=== PATIENT | female | born 1990 | race Caucasian/White ===

== ENCOUNTER → 2019-10-15 | Outpatient (CLI) | payer BC, SELFPAY | PROVIDERS: PCP Family Medicine; Referring Provider Obstetrics & Gynecology; Visit Provider Obstetrics & Gynecology | DX: I10 Essential (primary) hypertension (principal); Z34.90 Encounter for supervision of normal pregnancy, unspecified, unspecified trimester ==

== ENCOUNTER → 2019-11-07 12:34 | Outpatient (CLI) | payer BC, SELFPAY ==
[2019-11-07 14:47] LABS: Hematocrit 37.6 % (36-46); Hemoglobin 12.6 g/dL (12.0-16.0); Mean Corpuscular HGB Conc 33.4 % (30-36); Mean Corpuscular Hemoglobin 30.2 PG (26-34); Mean Corpuscular Volume 90.4 fL (80-100); Platelet Count 209 X10^3/uL (150-400); Red Blood Cell Count 4.16 X10^6/uL (4.0-5.2); Red Cell Distribution Width 13.9 % (11.6-14.8); White Blood Cell Count 12.6 X10^3/uL (4.5-11.0)
[2019-11-07 14:57] LABS: Collection Time Urine 24 Hours; Protein (Total) Urine Random 12 mg/dL (0-12); Total Protein 24 Hour Urine 382 mg/day (42-225); Total Volume Urine 3180 mL
[2019-11-07 15:04] LABS: Alanine Aminotransferase 34 IU/L (<35); Albumin 3.6 g/dL (3.5-5.0); Albumin Globulin Ratio 1.2 (1.0-2.8); Alkaline Phosphatase 81 U/L (38-126); Aspartate Aminotransferase 30 IU/L (14-36); Bilirubin Total 0.3 mg/dL (0.2-1.3); Blood Urea Nitrogen 9 mg/dL (7-17); Calcium 8.8 mg/dL (8.4-10.2); Carbon Dioxide 23 mmol/L (22-32); Chloride 102 mmol/L (98-107); Estimated Glomerular Filt Rate > 60.0 mL/min (>60); GTT (PREG) 1 Hour PP 50gm Dose 154 mg/dL (76-139); Globulin 3.1 g/dL (1.7-4.1); Glucose 154 mg/dL (70-100); HEMOLYSIS < 15 (0-50); Potassium 3.2 mmol/L (3.4-5.1); Sodium 137 mmol/L (137-145); Total Protein 6.7 g/dL (6.3-8.2)
== END ==
PROVIDERS: PCP Family Medicine; Referring Provider Obstetrics & Gynecology; Visit Provider Obstetrics & Gynecology
DX: O10.919 Unspecified pre-existing hypertension complicating pregnancy, unspecified trimester (principal)
CPT/HCPCS: 36415; 80053; 82950; 84156; 85027

== ENCOUNTER → 2019-11-11 07:47 | Outpatient (CLI) | payer BC, SELFPAY ==
[2019-11-11 08:37] LABS: Glucose Fasting Gestational 81 mg/dL (76-95)
[2019-11-11 10:00] LABS: Glucose 1 Hour Gest 202 mg/dL (76-180)
[2019-11-11 11:09] LABS: Glucose Tol Interp,Gestational INTERPRETATION
[2019-11-11 11:16] LABS: Glucose 2 Hour Gest 184 mg/dL (76-155)
[2019-11-11 11:39] LABS: Glucose 3 Hour Gest 142 mg/dL (76-140)
== END ==
PROVIDERS: PCP Family Medicine; Referring Provider Obstetrics & Gynecology; Visit Provider Obstetrics & Gynecology
DX: R73.09 Other abnormal glucose (principal)
CPT/HCPCS: 36415; 82951; 82952

== ENCOUNTER → 2019-12-16 13:48 | Outpatient (CLI) | payer BC, SELFPAY ==
--- NOTE | 2019-12-16 14:10 | DIET.PN ---
INITIAL GESTATIONAL DIABETES ASSESSMENT ASSESS:? Mrs. Crystal Adamson is a 29 yr old female with new DX of Gestational diabetes. This is her first . She reports significant changes to her dietary patterns since her DX including cutting down on portions sizes and eliminating juices and diet beverages. She is not taking any diabetes medication. ? SARAH:? February 03, 2020 ? WKS GESTATION:?? 33 weeks ?LABS: Fastin 1hr: 202 2hr: 184 3hr: 142 FB-94 1hr: <140 ? MEDS: na ? DIET:? B: ww toast w/ PB, chobani pashto yogurt w/ granola, 1 espresso w/ anupam milk Sn: apple w/ PB; crx w/ chz; cottage chz L: leftovers Sn: same as above D: chicken or lean ground beef w/ veg and starch Sn: popcorn; yogurt ? HT:? 70? PRE-PREG WT:? 188 ? PRE-PREG BMI:??27? CURRENT WT : 206 ? TOTAL WT GAIN:? 18 EXERCISE: occasional walking on treadmill at home NUTRITION DX 1. Altered nutrition related lab values r/t gestational diabetes as evidenced by recent labs (OGGT). INTERVENTION 1. Discussed pathophysiology of gestational diabetes and impact of hormone and nutrition/diet on blood sugar control.? Discussed fed versus non-fed state.? 2. Recommended checking fasting, pre-meal and 1hr post prandial (3x/day).? Discussed goals for glycemic control (<95 FBG, <140 1-hr PP).? 3. Discussed the effect of carbohydrates/protein/fat on blood sugar control.? Stressed importance of consistent carbohydrate intake at each meal and provided instructions for recommended servings/portions of carbohydrates/protein per meal.? Provided pt with educational material. 4. Introduced carbohydrate counting and measuring carbohydrate content via servings sizes and reading nutrition labels.? Provided handouts.? Pt will need further review 5. Discussed importance of meal timing and not going >3 hours between meals.? Provided sample meal schedule for pt.? Pt agreeable.?? 6. Discussed importance a pre-kamini vitamin and including food sources of calcium, vitamin D, iron and folic acid for baby and mother?s nutrition support. 7. Discussed caffeine intake. Recommend no more than 200 mg/day (1 cup coffee). 8. Discussed rule of 15 for hypoglycemia. 9. Recommend patient purchase Urine Ketone strips and instructed on use and when to contact provider. 10. Recommended patient continue exercise as appropriate per PCP approval. 11. Patient may need medication management, will follow-up with plan of care at next visit after reviewing glucose results.? MONITOR/EVAL: Follow up scheduled X 1 week (phone call unless otherwise indicated). Good compliance expected. Review: carb sources, carb counting, portion size, meal timing, BG log, weight.
[2019-12-16 14:18] LABS: Hemoglobin 13.2 g/dL (12.0-16.0); Mean Corpuscular Hemoglobin 30.7 PG (26-34); Mean Corpuscular Volume 90.2 fL (80-100); Platelet Count 207 X10^3/uL (150-400); Red Blood Cell Count 4.32 X10^6/uL (4.0-5.2); Red Cell Distribution Width 14.4 % (11.6-14.8); White Blood Cell Count 11.1 X10^3/uL (4.5-11.0)
[2019-12-16 14:38] LABS: Alanine Aminotransferase 24 IU/L (<35); Albumin 3.8 g/dL (3.5-5.0); Albumin Globulin Ratio 1.1 (1.0-2.8); Alkaline Phosphatase 110 U/L (38-126); Aspartate Aminotransferase 28 IU/L (14-36); BUN Creatinine Ratio 15.9 (6-22); Bilirubin Total 0.3 mg/dL (0.2-1.3); Blood Urea Nitrogen 10 mg/dL (7-17); Calcium 9.3 mg/dL (8.4-10.2); Carbon Dioxide 25 mmol/L (22-32); Chloride 106 mmol/L (98-107); Estimated Glomerular Filt Rate > 60.0 mL/min (>60); Globulin 3.5 g/dL (1.7-4.1); Glucose 78 mg/dL (70-100); HEMOLYSIS < 15 (0-50); Potassium 4.1 mmol/L (3.4-5.1); Sodium 135 mmol/L (137-145); Total Protein 7.3 g/dL (6.3-8.2)
[2019-12-16 14:40] LABS: Uric Acid 3.9 mg/dL (2.5-6.2)
== END ==
PROVIDERS: PCP Family Medicine; Referring Provider Obstetrics & Gynecology; Visit Provider Obstetrics & Gynecology
DX: O24.419 Gestational diabetes mellitus in pregnancy, unspecified control (principal); Z3A.33 33 weeks gestation of pregnancy; Z71.3 Dietary counseling and surveillance
CPT/HCPCS: 36415; 80053; 84550; 85027; G0108

== ENCOUNTER 2019-12-30 13:10 | Outpatient (CLI) | payer BC, SELFPAY | END 2019-12-30 14:35 | disposition home or self-care (01) | LOC: LABOR 13:50 → OB 12-31 12:39 | PROVIDERS: Referring Provider Obstetrics & Gynecology; Visit Provider Obstetrics & Gynecology | DX: O24.419 Gestational diabetes mellitus in pregnancy, unspecified control (principal); Z3A.35 35 weeks gestation of pregnancy | CPT/HCPCS: 59025; G0378; G0379 ==

== ENCOUNTER 2020-01-06 09:50 | Outpatient (CLI) | payer BC, SELFPAY | END 2020-01-06 12:05 | disposition home or self-care (01) | LOC: LABOR 10:32 → OB 01-07 15:18 | PROVIDERS: Referring Provider Obstetrics & Gynecology; Visit Provider Obstetrics & Gynecology | DX: O24.410 Gestational diabetes mellitus in pregnancy, diet controlled (principal); Z3A.36 36 weeks gestation of pregnancy | CPT/HCPCS: 36415; 59025; 59050; 80053; 85025; 87653; G0378; G0379 ==

== ENCOUNTER → 2020-01-06 11:23 | Outpatient (CLI) | payer BC, SELFPAY ==
[2020-01-06 13:03] LABS: Add Manual Diff / Slide Review NO; Basophils Absolute Auto 0 /uL (0-100); Basophils Percent Auto 0.2 % (0-2); Eosinophils Absolute Auto 100 /uL (0-450); Eosinophils Percent Auto 0.5 % (2-4); Hematocrit 39.2 % (36-46); Hemoglobin 13.1 g/dL (12.0-16.0); Lymphocytes Absolute Auto 1200 /uL (1100-4500); Lymphocytes Percent Auto 10.9 % (25-40); Mean Corpuscular HGB Conc 33.4 % (30-36); Mean Corpuscular Hemoglobin 30.5 PG (26-34); Mean Corpuscular Volume 91.2 fL (80-100); Monocytes Absolute Auto 600 /uL (0-900); Monocytes Percent Auto 5.5 % (3-14); Neutrophils Absolute Auto 9200 /uL (1500-7000); Neutrophils Percent Auto 82.9 % (50-75); Platelet Count 198 X10^3/uL (150-400); Red Cell Distribution Width 14.5 % (11.6-14.8); White Blood Cell Count 11.1 X10^3/uL (4.5-11.0)
[2020-01-06 13:08] LABS: Alanine Aminotransferase 20 IU/L (<35); Albumin 3.8 g/dL (3.5-5.0); Albumin Globulin Ratio 1.2 (1.0-2.8); Alkaline Phosphatase 136 U/L (38-126); Aspartate Aminotransferase 29 IU/L (14-36); BUN Creatinine Ratio 21.3 (6-22); Bilirubin Total 0.3 mg/dL (0.2-1.3); Blood Urea Nitrogen 13 mg/dL (7-17); Calcium 9.5 mg/dL (8.4-10.2); Carbon Dioxide 24 mmol/L (22-32); Chloride 106 mmol/L (98-107); Estimated Glomerular Filt Rate > 60.0 mL/min (>60); Globulin 3.3 g/dL (1.7-4.1); Glucose 73 mg/dL (70-100); HEMOLYSIS < 15 (0-50); Sodium 136 mmol/L (137-145); Total Protein 7.1 g/dL (6.3-8.2)
[2020-01-07 07:55] LABS: Strep Grp B PCR NEG for Grp B Strep
== END ==
PROVIDERS: Referring Provider Obstetrics & Gynecology; Visit Provider Obstetrics & Gynecology
DX: Z34.03 Encounter for supervision of normal first pregnancy, third trimester (principal); Z3A.36 36 weeks gestation of pregnancy
CPT/HCPCS: 36415; 80053; 85025; 87653

== ENCOUNTER → 2020-01-15 10:27 | Outpatient (CLI) | payer BC, SELFPAY ==
[2020-01-15 12:00] LABS: Hemoglobin 12.8 g/dL (12.0-16.0); Mean Corpuscular HGB Conc 34.6 % (30-36); Mean Corpuscular Hemoglobin 31.4 PG (26-34); Mean Corpuscular Volume 90.7 fL (80-100); Platelet Count 192 X10^3/uL (150-400); Red Blood Cell Count 4.08 X10^6/uL (4.0-5.2); Red Cell Distribution Width 14.6 % (11.6-14.8); White Blood Cell Count 10.3 X10^3/uL (4.5-11.0)
[2020-01-15 12:02] LABS: Alanine Aminotransferase 18 IU/L (<35); Albumin 3.7 g/dL (3.5-5.0); Albumin Globulin Ratio 1.2 (1.0-2.8); Alkaline Phosphatase 127 U/L (38-126); Aspartate Aminotransferase 24 IU/L (14-36); BUN Creatinine Ratio 23.4 (6-22); Bilirubin Total 0.3 mg/dL (0.2-1.3); Blood Urea Nitrogen 15 mg/dL (7-17); Calcium 9.3 mg/dL (8.4-10.2); Carbon Dioxide 22 mmol/L (22-32); Chloride 105 mmol/L (98-107); Estimated Glomerular Filt Rate > 60.0 mL/min (>60); Globulin 3.2 g/dL (1.7-4.1); Glucose 86 mg/dL (70-100); HEMOLYSIS < 15 (0-50); Sodium 136 mmol/L (137-145); Total Protein 6.9 g/dL (6.3-8.2)
[2020-01-15 15:34] LABS: Protein (Total) Urine Random 10 mg/dL (0-12)
[2020-01-15 18:30] LABS: Collection Time Urine 24 Hours; Total Protein 24 Hour Urine 305 mg/day (42-225); Total Volume Urine 3050 mL
[2020-01-15 18:35] LABS: Creatinine, Serum (CRCL) 0.64 mg/dL (0.52-1.04)
[2020-01-15 18:36] LABS: Creat Clearance, Corrected 133.7 mL/MIN; Creatinine Clearance Urine 165.8 mL/MIN; Creatinine Urine Random 50.1 mg/dL; Patient Height Urine 70 inches; Patient Weight Urine 215 lbs
== END ==
PROVIDERS: Referring Provider Obstetrics & Gynecology; Visit Provider Obstetrics & Gynecology
DX: O16.3 Unspecified maternal hypertension, third trimester (principal)
CPT/HCPCS: 36415; 80053; 82575; 84156; 84550; 85027

== ENCOUNTER 2020-01-15 10:53 | Outpatient (CLI) | payer BC, SELFPAY | END 2020-01-15 11:50 | disposition home or self-care (01) | LOC: LABOR 11:26 → OB 01-16 07:46 | PROVIDERS: Referring Provider Obstetrics & Gynecology; Visit Provider Obstetrics & Gynecology | DX: O24.419 Gestational diabetes mellitus in pregnancy, unspecified control (principal); Z3A.37 37 weeks gestation of pregnancy | CPT/HCPCS: 36415; 59025; 80053; 82575; 84156; 84550; 85027; G0378; G0379 ==

== ENCOUNTER 2020-01-22 11:10 | Outpatient (CLI) | payer BC, SELFPAY | END 2020-01-22 12:15 | disposition home or self-care (01) | LOC: LABOR 11:39 → OB 01-23 13:11 | PROVIDERS: Referring Provider Obstetrics & Gynecology; Visit Provider Obstetrics & Gynecology | DX: O24.419 Gestational diabetes mellitus in pregnancy, unspecified control (principal); O13.3 Gestational [pregnancy-induced] hypertension without significant proteinuria, third trimester; Z3A.38 38 weeks gestation of pregnancy | CPT/HCPCS: 59025; G0378; G0379 ==

== ENCOUNTER → 2020-01-27 11:27 | Outpatient (CLI) | payer BC, SELFPAY ==
[2020-01-28 11:00] LABS: COVID19 Sendout NOT DETECTED
== END ==
PROVIDERS: Visit Provider Registered Nurse
DX: Z34.90 Encounter for supervision of normal pregnancy, unspecified, unspecified trimester (principal)
CPT/HCPCS: 87635

== ENCOUNTER 2020-01-28 19:19 | Inpatient (IN) | payer BC, SELFPAY ==
[2020-01-28 20:25] VITALS: BP 136/87
[2020-01-28 20:43] LABS: Add Manual Diff / Slide Review NO; Basophils Absolute Auto 0 /uL (0-100); Basophils Percent Auto 0.3 % (0-2); Eosinophils Absolute Auto 100 /uL (0-450); Eosinophils Percent Auto 0.7 % (2-4); Hematocrit 35.8 % (36-46); Hemoglobin 12.4 g/dL (12.0-16.0); Lymphocytes Absolute Auto 1500 /uL (1100-4500); Lymphocytes Percent Auto 13.5 % (25-40); Mean Corpuscular HGB Conc 34.6 % (30-36); Mean Corpuscular Hemoglobin 31.2 PG (26-34); Mean Corpuscular Volume 89.9 fL (80-100); Monocytes Absolute Auto 700 /uL (0-900); Monocytes Percent Auto 6.4 % (3-14); Neutrophils Absolute Auto 8500 /uL (1500-7000); Neutrophils Percent Auto 79.1 % (50-75); Platelet Count 185 X10^3/uL (150-400); Red Blood Cell Count 3.98 X10^6/uL (4.0-5.2); Red Cell Distribution Width 14.5 % (11.6-14.8); White Blood Cell Count 10.8 X10^3/uL (4.5-11.0)
[2020-01-28 20:55] VITALS: BP 136/87; PULSE 70
[2020-01-28 20:55] LABS: Alanine Aminotransferase 25 IU/L (<35); Albumin 3.6 g/dL (3.5-5.0); Albumin Globulin Ratio 1.2 (1.0-2.8); Alkaline Phosphatase 133 U/L (38-126); Aspartate Aminotransferase 34 IU/L (14-36); BUN Creatinine Ratio 23.7 (6-22); Bilirubin Total 0.2 mg/dL (0.2-1.3); Blood Urea Nitrogen 18 mg/dL (7-17); Calcium 9.3 mg/dL (8.4-10.2); Carbon Dioxide 23 mmol/L (22-32); Chloride 103 mmol/L (98-107); Estimated Glomerular Filt Rate > 60.0 mL/min (>60); Globulin 3.1 g/dL (1.7-4.1); Glucose 87 mg/dL (70-100); HEMOLYSIS < 15 (0-50); Potassium 3.9 mmol/L (3.4-5.1); Sodium 133 mmol/L (137-145); Total Protein 6.7 g/dL (6.3-8.2)
[2020-01-28] MEDS: LABETALOL 100 MG TABLET PO (20:55)
[2020-01-28] MEDS: miSOPROStoL 25 MCG TABLET 50 MCG PO (21:05)
--- NOTE | 2020-01-28 21:09 | P.HPOB_ITS ---
OB HPI Date/Time Date of admission: 01/28/20 Date Patient Seen: 01/28/20 Time Patient Seen: 20:30 History of Present Condition Chief complaint: : 1 Para: 0 Estimated Date of Delivery: 02/03/20 Estimated Gestational Age (weeks): 39week Narrative: Chelsie Adamson is a 29 year old G1 female with an SARAH of 02/03/2020 by LMP and consistent with a 9 week ultrasound, who is being admitted at 39 weeks for induction of labor due to chronic hypertension and GDM. She was noted to have an elevated BP had her initial OB visit. She was followed by MFM with growth scans through the . She preferred to try to stay off medications and BP overall controlled through , especially once she was no longer working due to COVID-19 precautions and found with less stress from work, her BP was controlled. She recently did need to start labetalol at the end of . She has baseline proteinuria at approximately 300 mg which was stable a few weeks ago. was also complicated by GDM, which has been diet controlled, with excellent control. Indications Indication for induction OB: medical complication (Chronic hypertension, gestational diabetes) History of Present care: good care Dating criteria: LMP confirmed by 1st trimester US Obstetrical complications: gestational diabetes Preadmission Labs Blood type: B (+) positive -: Antibody screen: negative, Cystic fibrosis screen: negative, GBS status: negative, HBsAG: negative and HIV: negative -: Chlamydia screen: not detected -: Rubella: immune and Varicella: immune HCAB: negative PAP: Normal Cell-free DNA: normal, male gender Evaluation Evaluation Baseline heart rate: 130 Variability: Moderate (11-25) monitor accelerations: Present monitor decelerations: Absent Category of Tracing: I Cervical dilation (cm): 0 Cervical effacement (%): 0 station: -3 Laboratory results: Laboratory Tests 01/28/20 01/28/20 19:50 19:50 WBC 10.8 RBC 3.98 L Hgb 12.4 Hct 35.8 L MCV 89.9 MCH 31.2 MCHC 34.6 RDW 14.5 Plt Count 185 Neut % (Auto) 79.1 H Lymph % (Auto) 13.5 L Spencer % (Auto) 6.4 Eos % (Auto) 0.7 L Baso % (Auto) 0.3 Neut # (Auto) 8500 H Lymph # (Auto) 1500 Spencer # (Auto) 700 Eos # (Auto) 100 Baso # (Auto) 0 Sodium 133 L Potassium 3.9 Chloride 103 Carbon Dioxide 23 BUN 18 H Creatinine 0.76 Estimated GFR > 60.0 BUN/Creatinine Ratio 23.7 H Glucose 87 Calcium 9.3 Total Bilirubin 0.2 AST 34 ALT 25 Alkaline Phosphatase 133 H Total Protein 6.7 Albumin 3.6 Globulin 3.1 Albumin/Globulin Ratio 1.2 [facility] Medical History (Updated 11/13/19 @ 16:28 by Leslie Harvey MD) GDM (gestational diabetes mellitus) (Acute) Ovarian cyst (Inactive ~2017) Surgical History (Updated 10/10/19 @ 09:46 by Elzbieta Jimenez RN) No significant past surgical history (Acute) Family History (Updated 06/07/19 @ 22:09 by Cristal Kruger) Father Diabetes mellitus History of heart disease Hypertension Stroke Mother Hypertension Hyperlipidemia History of renal disease Brother Hypertension Grandmother Stroke Hypertension Social History marital status: Smoking Status: Never smoker second hand exposure: No alcohol intake: current substance use type: does not use Meds Home Medications and Allergies Home Medications Medication Instructions Recorded Confirmed Type prenat.vits,rivka,nlv-csse-ddcyv 1 tab PO DAILY 10/09/19 01/28/20 History Double Electric breast Pump and #1 each 10/23/19 01/28/20 Rx Supplies blood sugar diagnostic #400 each 11/14/19 01/28/20 Rx blood-glucose meter #1 each 11/14/19 01/28/20 Rx lancets 28 gauge #400 each 11/14/19 01/28/20 Rx blood sugar diagnostic #100 each 12/30/19 01/28/20 Rx Allergies Allergy/AdvReac Type Severity Reaction Status Date / Time No Known Drug Allergies Allergy Verified 01/06/20 10:56 Review of Systems Review of Systems Narrative: Denies headache, vision changes or abdominal pain. Denies leakage of fluid. Denies feeling any contractions. Exam Vital Signs (past 8 hours): - Initial BP's 153/89, 150/95, then decreased to 136/87. Pulse 70 01/28/20 20:25 01/28/20 20:55 Pulse Rate 70 Blood Pressure 136/87 136/87 Narrative Exam Narrative: General: Well-appearing female Abdomen: Gravid, nontender, nondistended Extremities trace edema Cervix closed/long/posterior to mid position/-3 Objective Labs Result Diagrams: 01/28/20 19:50 01/28/20 19:50 Labs: Laboratory Results - last 24 hr 01/28/20 01/28/20 19:50 19:50 WBC 10.8 RBC 3.98 L Hgb 12.4 Hct 35.8 L MCV 89.9 MCH 31.2 MCHC 34.6 RDW 14.5 Plt Count 185 Neut % (Auto) 79.1 H Lymph % (Auto) 13.5 L Spencer % (Auto) 6.4 Eos % (Auto) 0.7 L Baso % (Auto) 0.3 Neut # (Auto) 8500 H Lymph # (Auto) 1500 Spencer # (Auto) 700 Eos # (Auto) 100 Baso # (Auto) 0 Sodium 133 L Potassium 3.9 Chloride 103 Carbon Dioxide 23 BUN 18 H Creatinine 0.76 Estimated GFR > 60.0 BUN/Creatinine Ratio 23.7 H Glucose 87 Calcium 9.3 Total Bilirubin 0.2 AST 34 ALT 25 Alkaline Phosphatase 133 H Total Protein 6.7 Albumin 3.6 Globulin 3.1 Albumin/Globulin Ratio 1.2 Assessment and Plan Assessment and Plan Assessment and Plan narrative: 29-year-old G1 with, chronic hypertension, GDM diet controlled Admit for induction of labor due to the chronic hypertension and GDM IV placed. CBC, CMP and type and screen ordered Cytotec ordered for cervical ripening. Time Spent with Patient Total time spent with greater than 50% in coordination of care (as documented) at patient's floor/unit and/or counseling patient:: 15-24 minutes
[2020-01-28] MEDS: ZOLPIDEM 5 MG TABLET PO (23:08)
[2020-01-29] MEDS: miSOPROStoL 25 MCG TABLET 50 MCG PO ×4 (01:27→13:51)
[2020-01-29] MEDS: LABETALOL 100 MG TABLET PO ×2 (09:41→21:33)
--- NOTE | 2020-01-29 17:55 | PM.OBPNLAB ---
Date/Time Date Patient Seen: 01/29/20 Time Patient Seen: 08:00 Pain Control Pain control: tolerating well Comments: Only feeling mildly crampy for the 1st time this a.m.. She is status post 3 doses of misoprostol; next dose will be due in 1 hour. Pelvic Exam Dilation (cm): 1 Effacement (%): 50 station: -3 Contractions Contractions on admission: none Contraction pattern: Irregular (q 2-5 to occasional) Contraction intensity: Mild Status status: Category l Heart Rate Baseline: 120 Monitor Accelerations: Present Monitor Decelerations: Absent Monitor Variability: Moderate Assessment and Plan Assessment: induction ongoing Plan: continuous present management Comments: Discussed with her, continue with the cervical ripening. Repeat misoprostol when due in 1 hour.
--- NOTE | 2020-01-29 18:51 | PM.OBPNLAB ---
Date/Time Date Patient Seen: 01/29/20 Time Patient Seen: 18:40 Pain Control Pain control: tolerating well Pelvic Exam Dilation (cm): 0 Effacement (%): 0 station: -3 Amniotic membrane status: Intact Contractions Contraction frequency (min): 5 (q 2-5 minutes) Contraction pattern: Irregular (q 2 to 5 minutes) Contraction intensity: Mild Status status: Category l Monitor Accelerations: Present Monitor Decelerations: Absent Monitor Variability: Moderate Comments: 1 hour PP glucose post dinner 110 Assessment and Plan Assessment: induction ongoing Comments: Discussed continue with cervical ripening. I discussed consideration of transcervical Mcgovern balloon versus continuing with prostaglandins medication. Patient is hesitant regarding the Mcgovern due to concern if discomfort with placing this. Desires continuing with medication. Will change to Cervidil overnight for sleep as well. Discussed and agreeable to Cervidil. She had some dinner. Will shower and ambulate, then have Cervidil placed for prior to bedtime.
[2020-01-29 21:33] VITALS: BP 141/78; PULSE 64
[2020-01-29] MEDS: DINOPROSTONE VAG (CERVIDIL) 10 MG VAG (21:49)
--- NOTE | 2020-01-29 22:05 | PM.OBPNLAB ---
Date/Time Date Patient Seen: 01/29/20 Time Patient Seen: 22:05 Pain Control Pain control: tolerating well Pelvic Exam Dilation (cm): 1 Effacement (%): 70 station: -3 Amniotic membrane status: Ruptured (blood tinged at 2018, now clear) Comments: cervix posterior Contractions Contraction frequency (min): 4 (q 4-5 minutes) Contraction pattern: Irregular (q 2 to 5 minutes) Contraction intensity: Mild Status status: Category l Heart Rate Baseline: 130 Monitor Accelerations: Present Monitor Decelerations: Absent Monitor Variability: Moderate Assessment and Plan Comments: Patient had spontaneous rupture membranes at 8:18 p.m. contractions only still crampy, no active labor. Cervidil placed by RN, as I had advised if no uncomfortable or frequent contractions after 1 hour. I arrived just after Cervidil placement and checked Cervidil placement, since she was uncertain if was posterior to cervix since cervix was fairly high. I rechecked her in Cervidil was in the correct location. Cervix is 1/70%/-3. Vertex. Continue with the Cervidil for cervical ripening. Advised remove Cervidil if she develops uncomfortable contractions, significant cervical change
[2020-01-30] VITALS (7 sets, daily range): BP systolic 124–129; BP diastolic 59–67; PULSE 82–103; RESP 12–14; TEMP 37.5–38.4; O2SAT 99
[2020-01-30] MEDS: fentaNYL 100 MCG/2 ML INJ 50 MCG IV (01:48)
--- NOTE | 2020-01-30 04:23 | P.PCN_ITS ---
Regional Block Pre-procedure Procedure: Continuous Lumbar Epidural for L&D Attending OB provider: Leslie Harvey PMH/ROS narrative: term labor induction. GHTN recently on labetolol, GDM- diet controlled. Preeclampsia lab evaluation +protienuria, no other a bnormalities. Hx: No personal or family history of anesthesia problems. ASA Class: II Labs: Hct 35.8 % (36-46) L 01/28/20 19:50 Plt Count 185 X10^3/uL (150-400) 01/28/20 19:50 Medications: Current Medications Generic Name Dose Route Start Last Admin Trade Name Freq PRN Reason Stop Dose Admin Acetaminophen 650 mg 01/28/20 20:49 Tylenol PO Q4HR PRN Fever/Mild Pain (1-3) Calcium Carbonate 500 mg 01/28/20 20:49 Tums PO Q2H PRN Dyspepsia Diphenhydramine HCl 25 mg 01/30/20 03:45 Benadryl IV Q10M PRN Pruritis Fentanyl 50 mcg 01/28/20 20:55 01/30/20 01:48 Sublimaze IV 50 mcg Q1H PRN Administration Pain, Moderate (4-6) Lactated Ringer's 1,000 mls @ 100 mls/hr 01/28/20 20:45 Lactated Ringers IV CONT CICI Lactated Ringer's 1,000 mls @ 100 mls/hr 01/28/20 21:00 Lactated Ringers IV CONT CICI Lactated Ringer's 1,000 mls @ 100 mls/hr 01/28/20 21:00 Lactated Ringers IV CONT CICI Oxytocin/Lactated Ringer's 30 unit in 500 mls @ 1 mls/hr 01/28/20 21:00 Oxytocin Premix IV TITRATE CICI Protocol 1 MILLIUNIT/MIN FENT 2MCG/ML BUPIV 0.125% EPI 200 mcg in 100 mls @ 6 mls/hr 01/30/20 03:45 Fentanyl/Bupiv/Ns 2mcg/Ml - 0.125% EPIDURAL CONT CICI Labetalol HCl 100 mg 01/28/20 21:00 01/29/20 21:33 Trandate PO 100 mg BID CICI Administration Metoclopramide HCl 10 mg 01/28/20 20:55 Reglan IV NOW PRN Nausea And Vomiting Naloxone HCl 0.2 mg 01/28/20 20:55 Narcan IV Q2MIN PRN Opiate Reversal Ondansetron HCl 4 mg 01/28/20 20:55 Zofran IV Q4HR PRN Nausea And Vomiting Zolpidem Tartrate 5 mg 01/28/20 20:49 01/28/20 23:08 Ambien PO 5 mg BEDTIME PRN Administration Sleep Allergies: Allergies Allergy/AdvReac Type Severity Reaction Status Date / Time No Known Drug Allergies Allergy Verified 01/06/20 10:56 Procedure Insertion date: 01/30/20 Insertion time: 04:10 Prep/Local: betadine x3 Interspace: L3-4 Patient position: sitting Needle: 18 gauge Zin.gl (CSE: 27g Pencan through Hustead, clear CSF. 0.75mL 0.25% bupiv) Loss of resistance with: saline JENNIFER at (cm): 4 Catheter placed at SKIN (cm): 9 Catheter in SPACE (cm): 5 Insertion: No CSF, No Blood, No Paresthesia with insertion, No Paresthesia with injection and No Test dose reaction Initial Medications TEST DOSE time: 04:06 TEST DOSE: 1.5% lidocaine with epinephrine 1:200k (mL): 3 BOLUS DOSE time: 04:09 BOLUS DOSE (mL): 3 BOLUS DOSE med: other (infusate: 0.125% bupiv with fentanyl 2mcg/mL) Infusion INFUSION: 0.125% bupivacaine and with fentanyl 2 mcg/mL Initial rate (mL/hr): 6 Post-procedure Anesthesia time START: 04:01 Anesthesia time END: 08:27
[2020-01-30] MEDS: LACTATED RINGERS 1,000 ML 100 ML IV (04:28)
[2020-01-30] MEDS: FENT 2MCG/ML BUPIV 0.125% EPI 200 MCG/100 ML PLAST..BAG 6 MCG EPIDURAL (04:28)
[2020-01-30] MEDS: ONDANSETRON 4 MG/2 ML INJ IV (05:16)
[2020-01-30] MEDS: LACTATED RINGERS 1,000 ML 1000 ML IV (07:50)
[2020-01-30] MEDS: CEFAZOLIN 2 GM/100 ML FROZ.PIGGY IV (08:08)
--- NOTE | 2020-01-30 08:24 | SUR.OPER ---
Supine on Padded OR bed, head on pillow, safety belt at thigh, arms secured on padded arm boards at <90 degrees abduction. Bump under right buttock. Legs uncrossed with pillow under knees, gel pad to heels, tape over blanket to lower legs.
--- NOTE | 2020-01-30 08:51 | SUR.OPER ---
VIABLE MALE INFANT DELIVERED AT 0827. PLACENTA AND CORD BLOOD TO OB WITH RN
--- NOTE | 2020-01-30 10:20 | P.PNOB_ITS ---
Date/Time Date Patient Seen: 01/30/20 Time Patient Seen: 06:45 ([id number]) Pain Control Pain control: epidural Comments: Patient became more uncomfortable with contractions, had received some fentanyl for discomfort then desired epidural. On exam by RN cervix was 2/80%. Cervidil removed. The patient received an epidural. She is now comfortable with epidural. Called to see patient due to FHR development of frequent deceleration, some early, but frequent variable and late decelerations Pelvic Exam Dilation (cm): 4 Effacement (%): 90 station: -3 Amniotic membrane status: Ruptured (blood tinged at 2018, now clear) Contractions Contraction frequency (min): 5 (q 4-5 minutes) Contraction pattern: Regular (q 2 to 5 minutes) Contraction intensity: Moderate Status status: Category ll Heart Rate Baseline: 130 Monitor Accelerations: Present Monitor Decelerations: Late (Initially intermittent, then repetitive moderate variable and late decelerations) Monitor Variability: Moderate Assessment and Plan Assessment: active labor and induction ongoing Plan: Comments: Will proceed with section for intolerance to labor. I discussed the decelerations after the exam at 6:45 a.m., discussed I would be watching closely, and if the decelerations became too frequent, with patient being far from delivery, I would then recommended proceeding with section. Within about 30 minutes, I discussed recurrent frequent decelerations and recommended proceeding with section for delivery. She agreed to proceeding with section for delivery. OR and anesthesia had been on standby, and notified at this time with proceed with section. Consent then obtained. I discussed the procedure. I discussed small risk of bleeding, infection, injury to adjacent organs including bowel, bladder and ureters. I discussed small risk of injury to the baby. Verbal and written consent obtained. Ancef 2 g IV to be given in the OR for preop prophylaxis. Just before transfer to the OR, patient was having some chills. Temperature re- checked and temp 100.1?. Will observe temperature after delivery. Dr. Almaguer, [facility] peds made aware for the baby.
--- NOTE | 2020-01-30 10:23 | P.OP_ITS ---
Operative Date/Time/Diagnoses Date of procedure: 01/30/20 Time of procedure: 09:00 Pre-op diagnosis: 39 week , intolerance of labor Post-op diagnosis: same Procedure & Clinicians Procedure: Primary lower transverse section Same procedure as scheduled: Yes Indications: 29-year-old G1 female admitted for induction of labor at 39 weeks due to chronic hypertension and GDM. She had spontaneous rupture membranes at 1 cm with her cervical ripening and progressed into active labor. She received an epidural for anesthesia. As she progressed in labor after the epidural, heart rate developed intermittent moderate variable and late decelerations which progressed to being repetitive. Cervical exam was 4 cm/90%. She was consented to proceed with section for delivery due to the intolerance to labor, remote from delivery. Surgeon: Leslie Harvey [employer] Engineer: Eve Almaguer Anesthesia Type: Epidural Operative Notes Findings: vertex was somewhat low, inferior to the pubic bone. Loops of umbilical cord were encountered beneath the uterine incision upon entrance into the uterus, over the baby's neck and shoulder. Cord not wrapped around the baby, no nuchal cord or body cord. Clear amniotic fluid. Uterus and bilateral tubes and ovaries were normal. A vigorous male infant delivered weighing 8 lb 3 oz, was delivered with Apgars of 9,9. Time of 0827 Closure Type: primary Specimen(s): other (Cord blood to lab) Estimated Blood Loss (mL): 500 Blood products transfused: none Procedure in detail: IV fluids: 100 ml crystalloid Urine output: 150 mL Description of procedure: She was transferred from the center to the operating room. She was placed in the supine position. Her epidural level was bolused for the C- section. Mcgovern catheter had previously been placed after the epidural. She was prepped and draped in routine sterile fashion. Her epidural level was tested and was noted to be adequate. A Pfannenstiel skin incision was made in the lower abdomen and carried down to the level of the fascia. The fascia was incised in the midline and was bluntly extended transversely. The superior and inferior edges of the fascia were elevated and dissected off the rectus muscles with sharp and blunt dissection. The muscles were bluntly in the midline. The parietal peritoneum was elevated, incised and extended bluntly. The bladder blade was placed. The visceral peritoneum was elevated off the lower uterus, incised and the bladder flap was bluntly created. The bladder blade retractor was placed. The lower uterine segment was noted to be thin consistent with the patient's laboring. A transverse incision was made in the lower uterus and the incision was extended transversely with blunt dissection. Loops of cord were immediately encountered upon entrance into the uterus. Clear fluid was noted. The head was somewhat low in the pelvis and was elevated to the uterine incision and delivered through the incision with some mildl fundal pressure. was in the FRANKLYN position. Anterior and posterior shoulders followed by the body were delivered without difficulty. The cried spontaneously and appeared vigorous. Cord was clamped and cut and the was shown to the mother and father, and then handed off to respiratory therapy who was present for delivery. Cord blood was obtained as specimen. The placenta was manually removed. It appeared intact with a normal three-vessel cord. The uterus was swept clean of adherent clots and membranes. The uterus was brought through the abdominal incision and closed in 2 layers with 0 Vicryl, the 1st layer being in running locking continuous fashion and the 2nd layer being in a vertical imbricating type fashion. Hemostasis was noted. The tubes and ovaries were inspected and noted to be normal. The uterus was placed back into the maternal abdomen. The paracolic gutters were inspected and wiped of some minimal blood and fluid. The anterior cul-de-sac was inspected and some clot was removed. The uterine incision was re- inspected and good hemostasis was noted. The pelvis was irrigated. Repeat inspection showed continued hemostasis. The abdomen was closed. The muscles were reapproximated with 3 interrupted sutures of 0 Vicryl. The fascia was closed with running continuous suture of 0 Vicryl. If the subcutaneous tissue was reapproximated by reapproximating Jd's fascia with running 3-0 Vicryl. The skin was closed with a subcuticular suture of 4 0 Monocryl. Steri-Strips and sterile Aquacel dressing was placed. She tolerated the procedure well and went to the recovery room in stable condition. Complications: none Post-operative Condition: stable Disposition: PACU Plan for aftercare: Subsequently transferred to the [facility]note 3] for routine postop, care
[2020-01-30 11:32] LABS: Add Manual Diff / Slide Review NO; Basophils Absolute Auto 0 /uL (0-100); Basophils Percent Auto 0.2 % (0-2); Eosinophils Absolute Auto 0 /uL (0-450); Hematocrit 31.1 % (36-46); Hemoglobin 10.8 g/dL (12.0-16.0); Lymphocytes Absolute Auto 700 /uL (1100-4500); Lymphocytes Percent Auto 3.6 % (25-40); Mean Corpuscular HGB Conc 34.6 % (30-36); Mean Corpuscular Hemoglobin 31.4 PG (26-34); Mean Corpuscular Volume 90.6 fL (80-100); Monocytes Absolute Auto 1200 /uL (0-900); Monocytes Percent Auto 6.6 % (3-14); Neutrophils Absolute Auto 17000 /uL (1500-7000); Neutrophils Percent Auto 89.6 % (50-75); Platelet Count 156 X10^3/uL (150-400); Red Blood Cell Count 3.44 X10^6/uL (4.0-5.2); Red Cell Distribution Width 14.4 % (11.6-14.8)
[2020-01-30] MEDS: CLINDAMYCIN 900 MG/50 ML PIGGYBACK 50 MG IV ×2 (11:36→18:45)
[2020-01-30] MEDS: OXYCODONE IR 5 MG TABLET PO ×2 (12:02→18:50)
[2020-01-30] MEDS: GENTAMICIN 450 MG in SODIUM CHLORIDE 0.9% 100 ML 111.25 ML IV (12:10)
--- NOTE | 2020-01-30 12:33 | PM.OBPN.1 ---
Subjective - OB Subjective Narrative: Notified that patient's temperature postop had gradually increased to 101.1 F. she does feel chilled. Date Patient Seen: 01/30/20 Time Patient Seen: 11:50 Exam Vital Signs (past 8 hours): - 01/30/20 09:30 01/30/20 09:35 01/30/20 09:40 Temperature 100.3 F H Pulse Rate 101 H 103 H 91 H Respiratory Rate 14 14 12 Blood Pressure 129/59 L 124/62 125/67 Pulse Oximetry 99 99 99 01/30/20 09:45 01/30/20 09:57 01/30/20 12:02 Temperature 100.2 F H 101.1 F H Pulse Rate 90 82 Respiratory Rate 13 12 Blood Pressure 125/66 129/65 Pulse Oximetry 99 99 Oxygen Delivery Method Room Air Narrative Exam Narrative: General: Mildly ill appearing Abdomen: Soft, nondistended. Uterus nontender. Dressing dry, intact Objective Labs Result Diagrams: 01/30/20 11:20 01/28/20 19:50 Labs: Laboratory Results - last 24 hr 01/30/20 11:20 WBC 19.0 H D RBC 3.44 L Hgb 10.8 L Hct 31.1 L MCV 90.6 MCH 31.4 MCHC 34.6 RDW 14.4 Plt Count 156 Neut % (Auto) 89.6 H Lymph % (Auto) 3.6 L [place] % (Auto) 6.6 Eos % (Auto) 0.0 L Baso % (Auto) 0.2 Neut # (Auto) 39264 H Lymph # (Auto) 700 L [place] # (Auto) 1200 H Eos # (Auto) 0 Baso # (Auto) 0 Assessment & Plan Plan day: 0 Comments: Increased temperature, fever 2 hours postoperatively. She had a low-grade temp just prior to going to the OR. Received Ancef in the OR. Blood cultures x2 ordered CBC ordered. Discussed with patient and IV antibiotics started, clindamycin 900 mg IV Q 8 hours and gentamicin for 450 mg q 24 hours (5 milligram/kilogram IV q 24 hours Time Spent With Patient Time: Total time spent is greater than 50% in coordination of care (as documented) at patient's floor/unit and/or counseling patient: Time with patient: 15-24 minutes
[2020-01-30] MEDS: KETOROLAC 30 MG/ML VIAL IV ×2 (15:41→21:36)
[2020-01-31] MEDS: KETOROLAC 30 MG/ML VIAL IV (04:00)
[2020-01-31] MEDS: CLINDAMYCIN 900 MG/50 ML PIGGYBACK 50 MG IV (04:01)
[2020-01-31 06:56] LABS: Add Manual Diff / Slide Review NO; Basophils Absolute Auto 0 /uL (0-100); Basophils Percent Auto 0.2 % (0-2); Eosinophils Absolute Auto 100 /uL (0-450); Eosinophils Percent Auto 0.7 % (2-4); Hematocrit 25.8 % (36-46); Lymphocytes Absolute Auto 1000 /uL (1100-4500); Lymphocytes Percent Auto 9.7 % (25-40); Mean Corpuscular HGB Conc 34.7 % (30-36); Mean Corpuscular Hemoglobin 31.4 PG (26-34); Mean Corpuscular Volume 90.6 fL (80-100); Monocytes Absolute Auto 700 /uL (0-900); Monocytes Percent Auto 6.3 % (3-14); Neutrophils Absolute Auto 8800 /uL (1500-7000); Neutrophils Percent Auto 83.1 % (50-75); Platelet Count 128 X10^3/uL (150-400); Red Blood Cell Count 2.85 X10^6/uL (4.0-5.2); Red Cell Distribution Width 14.8 % (11.6-14.8); White Blood Cell Count 10.6 X10^3/uL (4.5-11.0)
[2020-01-31] MEDS: DOCUSATE 250 MG CAPSULE PO (09:45)
[2020-01-31 11:02] VITALS: TEMP 36.9
[2020-01-31] MEDS: IBUPROFEN 600 MG TABLET PO ×2 (11:02→18:44)
[2020-01-31] MEDS: LANOLIN OINT 7 GM 1 APPLIC TOP (11:02)
--- NOTE | 2020-01-31 11:07 | PM.OBPN.1 ---
Subjective - OB Subjective Patient comments: no complaints, pain well controlled, tolerating diet and flatus present baby status: doing well and nursing well [place] feeding status: exclusively breast feeding Date Patient Seen: 01/31/20 Time Patient Seen: 11:15 Interval history: Feels well. No fever or chills. [place] out. Voiding without problems. Lochia normal, light Exam Vital Signs (past 8 hours): - Afebrile Tmax 101.1 F at 11 am, then afebrile. Afebrile almost 24 hours now. BP 112/75 Pulse 77 RR 16 01/31/20 11:02 Temperature 98.5 F Oxygen Delivery Method Room Air Narrative Exam Narrative: General: Fatigued appearing, otherwise well-appearing female Abdomen: Soft, nontender, nondistended. Fundus U-2, firm, slight tenderness Extremities: No pedal edema. No calf tenderness Objective Labs Result Diagrams: 01/31/20 06:26 01/28/20 19:50 Labs: Laboratory Results - last 24 hr 01/30/20 01/31/20 11:20 06:26 WBC 19.0 H D 10.6 RBC 3.44 L 2.85 L Hgb 10.8 L 9.0 L Hct 31.1 L 25.8 L MCV 90.6 90.6 MCH 31.4 31.4 MCHC 34.6 34.7 RDW 14.4 14.8 Plt Count 156 128 L Neut % (Auto) 89.6 H 83.1 H Lymph % (Auto) 3.6 L 9.7 L [place] % (Auto) 6.6 6.3 Eos % (Auto) 0.0 L 0.7 L Baso % (Auto) 0.2 0.2 Neut # (Auto) 83457 H 8800 H Lymph # (Auto) 700 L 1000 L [place] # (Auto) 1200 H 700 Eos # (Auto) 0 100 Baso # (Auto) 0 0 Assessment & Plan Assessment and Plan (1) Status post primary low transverse section: Problem details: Doing well. Increase ambulation. May shower. Continue routine care Status: Acute Current Visit: Yes (2) Endometritis following delivery: Problem details: Quick improvement with starting IV antibiotics. Almost 24 hours afebrile. WBC down to normal. Continue IV clindamycin and gentamicin until tomorrow. Status: Acute Current Visit: Yes Time Spent With Patient Time: 10 minutes. Total time spent is greater than 50% in coordination of care (as documented) at patient's floor/unit and/or counseling patient: Time with patient: less than 15 minutes
[2020-01-31 18:13] VITALS: BP 135/89; PULSE 82; RESP 12; TEMP 36.9
--- NOTE | 2020-01-31 18:19 | PM.OBDS.1 ---
Discharge Providers Provider Date of admission: 01/28/20 19:19 Discharge Date: 01/31/20 Consults: 01/30/20 10:06 Consult to Spinning And Winding Supervisor Routine Comment: Discharge provider: Leslie Harvey MD Summary Hospital Course Date Patient Seen: 01/31/20 Time Patient Seen: 17:45 Procedures: primary lower transverse section Induction of labor Hospital Course: Chelsie Adamson is a 29 year old G1 female who was admitted at 39 weeks for induction of labor due to chronic hypertension and GDM. She only needed to start labetalol at the end of . She had no increase in her baseline proteinuria. She underwent induction of labor with Cytotec and Cervidil. She progressed into active labor and received an epidural for anesthesia. She progressed to 4 cm and at that time EFM became category 2 and subsequently developed persistent moderate variable decelerations and late decelerations. She was consented to proceed with primary section for nonreassuring FHTs, remote from delivery. Just prior to the she had chills and a temperature of 100.1 was measured. heart rate had a normal baseline, no tachycardia. She underwent primary lower transverse section without complications. Her temperature gradually increased after the , and 2 hours after the her fever was 101.1 F. IV antibiotics, clindamycin and gentamicin was started. Within a few hours she became afebrile, felt better and has continued to feel well. WBC on delivery day was 19, decreased to 10 on postop day 1. Blood cultures drawn, still pending. Except for the fever which quickly resolved, she had a normal and postoperative course. She has had normal return of bowel function. Lochia has remained normal. She is ambulating without problems. Her IV infiltrated around noon, and she preferred not to have a repeat IV to continue antibiotics to tomorrow, requested going on oral antibiotics at this time. Placed on Augmentin 875 mg b.i.d., since changing to oral treatment within 24 hours, will continue full treatment for 7 days. Since she feels well, and is only taken oral antibiotics, she desires, requested discharge home. Discussed optimal would be observation here yet until tomorrow to be sure she does not develop a recurrent fever and not need adding IV antibiotics again, but I suspect she will likely continue to do well and remained afebrile. Since she strongly desires discharge, will discharge home and she knows to call if she has a recurrent persistent fever. Understands risks that she may then need readmission. Will discharge on Augmentin b.i.d. for 7 days. Peripartum Data Delivery Method: Section complications: pelvic infection (Mild fever to 100.1 right before the . Within 1st 2 hours after the section, T-max to 101.1. Antibiotics started and she dropped to afebrile within a few hours and remained afebrile.) Lane [address]: Gender: Male Disposition of : home Discharge Diagnosis (1) Status post primary low transverse section: Status: Acute Problem Details: Doing well. Increase ambulation. May shower. Continue routine care (2) Endometritis following delivery: Status: Acute Problem Details: Quick improvement with starting IV antibiotics. Almost 24 hours afebrile. WBC down to normal. Continue IV clindamycin and gentamicin until tomorrow. Status at Discharge Cognitive/behavioral status at discharge: oriented Functional status at discharge: independent ambulation Overall status at discharge: patient is progressing back to baseline Time Spent with Patient Time attestation: Total time spent providing and/or coordinating discharge services: 20 minutes Specific discharge activities: No heavy lifting and nothing in the vagina for 6 weeks Time spent discussing smoking cessation with patient: more than 10 minutes Objective Labs Result Diagrams: 01/31/20 06:26 01/28/20 19:50 Labs: Laboratory Results - last 24 hr 01/31/20 06:26 WBC 10.6 RBC 2.85 L Hgb 9.0 L Hct 25.8 L MCV 90.6 MCH 31.4 MCHC 34.7 RDW 14.8 Plt Count 128 L Neut % (Auto) 83.1 H Lymph % (Auto) 9.7 L [place] % (Auto) 6.3 Eos % (Auto) 0.7 L Baso % (Auto) 0.2 Neut # (Auto) 8800 H Lymph # (Auto) 1000 L [place] # (Auto) 700 Eos # (Auto) 100 Baso # (Auto) 0 Exam Vital Signs (past 8 hours): - 01/31/20 11:02 01/31/20 18:13 Temperature 98.5 F 98.5 F Pulse Rate 82 Respiratory Rate 12 Blood Pressure 135/89 Oxygen Delivery Method Room Air Narrative Exam Narrative: General: Well-appearing female Abdomen: Soft, nontender, nondistended. Dressing intact, mnimal 2 spots olld blood stained Fundus U-1, firm, slight tenderness Extremities: No pedal edema Discharge Plan Discharge Plan Patient Disposition: Home Discharge comment: Call for appointment with me for Monday02/07/2020 Discharge orders & Medications Prescriptions: New acetaminophen 325 mg Tablet 975 mg PO Q8H PRN (Reason: Pain, Mild (1-3)) Qty: 0 RF: 0 ibuprofen 600 mg Tablet 600 mg PO Q6HR PRN (Reason: Fever/Mild Pain (1-3)) Qty: 90 RF: 1 docusate sodium 250 mg Capsule 250 mg PO DAILY Qty: 0 RF: 0 amoxicillin-pot clavulanate [Augmentin] 875-125 mg Tablet 1 tab PO BID 7 Days Qty: 14 RF: 0 oxycodone 5 mg Tablet 5 mg PO Q4-6H PRN (Reason: Pain, Moderate (4-6)) Qty: 14 RF: 0 Yra-R-Huuwfw Cream 1 applic topical PRN PRN (Reason: Sore Nipples) Qty: 0 RF: 0 Continued (DME) Double Electric breast Pump and Supplies See Rx Instructions .ROUTE .MEDSUPPLY Qty: 1 RF: 0 prenat.vits,rivka,aml-nige-igvwz Tablet 1 tab PO DAILY RF: 0 Discontinued (DME) blood-glucose meter [Blood Glucose Monitoring] Kit See Rx Instructions .ROUTE .MEDSUPPLY Qty: 1 RF: 0 (DME) lancets [FreeStyle Lancets] 28 gauge misc See Rx Instructions .ROUTE .MEDSUPPLY Qty: 400 RF: 1 (DME) Blood Glucose Test Strip See Rx Instructions .ROUTE .MEDSUPPLY Qty: 400 RF: 1 (DME) blood sugar diagnostic [FreeStyle Precision Abdullahi Strips] Strip See Rx Instructions .ROUTE .MEDSUPPLY Qty: 100 RF: 1 Follow up/Referrals: Leslie Harvey MD [Physician] - 02/07/20 (Call office for appointment time for Monday for dressing removal) Discharge Health Status Multidrug resistant organism: No MDRO Diet/Activity/Treatments Diet: Regular Activity: No heavy lifting for 6 weeks. Nothing in the vagina, no tampons or intercourse for 6 weeks. Skin/Wound/Dressing Care Dressing: Leave the dressing on until your next appointment. May shower with the dressing in place. Other wound treatment: Call if you notice any large area of redness above the dressing. Call for persistent nausea or vomiting, persistent fever greater than 100.0 F, chills, or heavy vaginal bleeding. Visit Report/Discharge Packet Stand Alone Forms: Discharge: Care
[2020-01-31 18:44] VITALS: TEMP 36.9
[2020-01-31 18:45] VITALS: TEMP 36.9
[2020-01-31] MEDS: OXYCODONE IR 5 MG TABLET PO (18:45)
== END 2020-01-31 17:10 | disposition home or self-care (01) | DRG 787 ==
PROVIDERS: Admitting Provider Obstetrics & Gynecology; Referring Provider Obstetrics & Gynecology; Visit Provider Obstetrics & Gynecology
PROC: 10D00Z1 Extraction of Products of Conception, Low, Open Approach (ICD-10-PCS; CPT 59514; principal; 2020-01-30 07:45)
DX: O24.420 Gestational diabetes mellitus in childbirth, diet controlled (principal); O86.12 Endometritis following delivery; Z3A.39 39 weeks gestation of pregnancy; Z37.0 Single live birth; O13.4 Gestational [pregnancy-induced] hypertension without significant proteinuria, complicating childbirth; O76 Abnormality in fetal heart rate and rhythm complicating labor and delivery
CPT/HCPCS: 01967; 01968; 36415; 59050; 59200; 59514; 59515; 80053; 85025; 86850; 86900; 86901; 87635; G0379; J0690; J1885; J2274; J2405; J2590; J3010

== ENCOUNTER 2020-02-17 05:31 | Emergency (ER) | payer BC, SELFPAY ==
[2020-02-17] VITALS (7 sets, daily range): BP systolic 125–163; BP diastolic 79–105; PULSE 87–113; RESP 16; TEMP 38.1–39; O2SAT 97–100; BMI 27.2
--- NOTE | 2020-02-17 05:32 | ED_ITS ---
HPI - General Chief complaint: Fever Stated complaint: post pardum thinks mastitis in left breast Time Seen by Provider: 02/17/20 05:32 Source: patient and family Mode of arrival: Ambulatory Limitations: no limitations History of Present Illness HPI Narrative: 30F nonsmoker delivered by C section on 01/29 with subsequent endometritis presents with her and a chief complaint of significant left breast pain, swelling, redness, fever and shaking chills over the course of the past day or so. She has been supplementing breast feeding with pumping every 2 hours or so and took a nap and slept for up to 5 hours and developed some pain and swelling in the aftermath. She has been expressing milk but pain is increasing and she is beginning to feel ill. She denies runny nose, sore throat or cough. She denies any chest pain or shortness of breath. She denies any nausea, vomiting or diarrhea. She denies dysuria, frequency or urgency. She denies any vaginal discharge and has minimal bleeding. Patient : No care: followed by OB Related Data Home Medications Medication Instructions Recorded Confirmed prenat.vits,rivka,fpo-kyrw-geujg 1 tab PO DAILY 10/09/19 02/07/20 Previous Rx's Medication Instructions Recorded Double Electric breast Pump and #1 each 10/23/19 Supplies acetaminophen 975 mg PO Q8H PRN #0 tab 01/31/20 docusate sodium 250 mg PO DAILY #0 cap 01/31/20 ibuprofen 600 mg PO Q6HR PRN #90 tab 01/31/20 lanolin [[id number]] 1 applic TOPICAL PRN PRN #0 g 01/31/20 oxycodone 5 mg PO Q4-6H PRN #14 tab 01/31/20 dicloxacillin 500 mg PO Q6H 10 Days #40 cap 02/17/20 Allergies Allergy/AdvReac Type Severity Reaction Status Date / Time No Known Drug Allergies Allergy Verified 02/07/20 12:57 Review of Systems Constitutional Constitutional: Reports chills, Denies fatigue, Reports fever(s), Denies frequent falls, Denies lethargy and Denies weakness Eyes Eyes: Denies change in vision, Denies eye discharge, Denies irritation and Denies loss of vision ENT Ears, Nose, Mouth, and Throat: Denies change in voice, Denies dizziness, Denies neck pain, Denies sore throat and Denies throat swelling Cardiovascular Cardiovascular: Denies chest pain, Denies irregular heart rhythm, Denies lightheadedness, Denies palpitations, Denies dyspnea, Denies dyspnea on exertion and Denies orthopnea Respiratory Respiratory: Denies cough, Denies dyspnea, Denies dyspnea on exertion and Denies wheezing Gastrointestinal Gastrointestinal: Denies abdominal pain, Denies change in bowel habits, Denies diarrhea, Denies nausea and Denies vomiting Musculoskeletal Musculoskeletal: Denies neck pain and Denies numbness Integumentary/Breasts Skin/Breast: Reports breast swelling, Reports breast pain, Denies pruritus, Denies erythema, Denies rash and Denies wounds Neurologic Neurologic: Denies behavioral changes, Denies confusion, Denies dizziness, Denies frequent falls, Denies loss of vision, Denies numbness and Denies weakness Psychiatric Psychiatric: Denies anxiety, Denies behavioral changes, Denies confusion, Denies depression, Denies homicidal ideation and Denies suicidal ideation Endocrine Endocrine: Denies fatigue, Denies flushing and Denies palpitations Hematologic/Lymphatic Hematologic/Lymphatic: Denies easy bruising Allergic/Immunologic Allergic/Immunologic: Denies urticaria, Denies throat swelling and Denies wheezing PMFSH - Past Medical History Medical history: Reports non-contributory Patient : No Psychiatric history: Reports no psych history Family History Family history: Reports no significant family history Exam Narrative Exam Narrative: GENERAL: [30] year old patient appears stated age. Well- nourished, well-developed patient, in mild distress. Obviously uncomfortable HEAD: Atraumatic. Normocephalic. EYES: Pupils equal round and reactive. Extraocular motions intact. No scleral icterus. No injection or drainage. ENT: Nose without bleeding, purulent drainage. Throat without erythema, tonsillar hypertrophy or exudate. Airway patent. NECK: Trachea midline. Non tender BREAST: L breast tender, swollen, erythematous, firm, most tender in LUQ of breast. Nipple and areola swollen, able to express milk CARDIOVASCULAR: Tachycardic and regular rhythm without murmurs, gallops, or rubs. RESPIRATORY: Clear to auscultation. Breath sounds equal bilaterally. No wheezes, rales, or rhonchi. GASTROINTESTINAL: Abdomen soft, non-tender, nondistended. EXTREMITIES: No edema or joint tenderness. BACK: Nontender without deformity or crepitance. No flank tenderness. NEURO: AOx3. SKIN: No rash or erythema of visible areas Initial Vital Signs Initial Vital Signs: Vital Signs Temperature 102.2 F H 02/17/20 05:32 Pulse Rate 113 H 02/17/20 05:32 Respiratory Rate 16 02/17/20 05:32 Blood Pressure 163/105 H 02/17/20 05:32 Pulse Oximetry 100 02/17/20 05:32 Course Orders Ordered: Discontinued Medications Acetaminophen (Tylenol) 650 mg PO NOW ONE Stop: 02/17/20 06:01 Last Admin: 02/17/20 06:13 Dose: 650 mg Documented by: ESTUARDO Fentanyl (Sublimaze) 50 mcg IV Q1H PRN PRN Reason: Pain, Severe (7-10) Last Admin: 02/17/20 06:14 Dose: 50 mcg Documented by: ESTUARDO Sodium Chloride (Normal Saline 0.9%) 1,000 mls @ 1,000 mls/hr IV BOLUS ONE Stop: 02/17/20 06:47 Last Infusion: 02/17/20 07:14 Dose: 0 mls/hr Documented by: Admin: 02/17/20 06:13 Dose: 1,000 mls/hr Documented by: ESTUARDO MDM - OB/Uterine Contractions Lab Data Result diagrams: 02/17/20 05:53 02/17/20 05:53 Labs: Lab Results 02/17/20 02/17/20 02/17/20 Range/Units 05:53 05:53 05:53 WBC (4.5-11.0) X10^3/uL RBC (4.0-5.2) X10^6/uL Hgb (12.0-16.0) g/dL Hct (36-46) % MCV (80-100) fL MCH (26-34) PG MCHC (30-36) % RDW (11.6-14.8) % Plt Count (150-400) X10^3/uL Neut % (Auto) (50-75) % Lymph % (Auto) (25-40) % [place] % (Auto) (3-14) % Eos % (Auto) (2-4) % Baso % (Auto) (0-2) % Neut # (Auto) (6374-9466) /uL Lymph # (Auto) (0692-8716) /uL [place] # (Auto) (0-900) /uL Eos # (Auto) (0-450) /uL Baso # (Auto) (0-100) /uL Sodium 136 L (137-145) mmol/L Potassium 4.0 (3.4-5.1) mmol/L Chloride 103 (98-107) mmol/L Carbon Dioxide 25 (22-32) mmol/L BUN 17 (7-17) mg/dL Creatinine 0.87 (0.52-1.04) mg/dL Estimated GFR > 60.0 (>60) mL/min BUN/Creatinine Ratio 19.5 (6-22) Glucose 97 (70-100) mg/dL Lactate 1.1 (0.7-2.1) mmol/L Calcium 9.7 (8.4-10.2) mg/dL Procalcitonin < 0.05 (<0.5) ng/mL 02/17/20 Range/Units 05:53 WBC 7.6 (4.5-11.0) X10^3/uL RBC 4.37 (4.0-5.2) X10^6/uL Hgb 13.0 (12.0-16.0) g/dL Hct 39.0 (36-46) % MCV 89.4 (80-100) fL MCH 29.9 (26-34) PG MCHC 33.4 (30-36) % RDW 13.4 (11.6-14.8) % Plt Count 269 (150-400) X10^3/uL Neut % (Auto) 86.0 H (50-75) % Lymph % (Auto) 6.5 L (25-40) % [place] % (Auto) 5.8 (3-14) % Eos % (Auto) 1.4 L (2-4) % Baso % (Auto) 0.3 (0-2) % Neut # (Auto) 6500 (8717-7806) /uL Lymph # (Auto) 500 L (4943-5367) /uL [place] # (Auto) 400 (0-900) /uL Eos # (Auto) 100 (0-450) /uL Baso # (Auto) 0 (0-100) /uL Sodium (137-145) mmol/L Potassium (3.4-5.1) mmol/L Chloride (98-107) mmol/L Carbon Dioxide (22-32) mmol/L BUN (7-17) mg/dL Creatinine (0.52-1.04) mg/dL Estimated GFR (>60) mL/min BUN/Creatinine Ratio (6-22) Glucose (70-100) mg/dL Lactate (0.7-2.1) mmol/L Calcium (8.4-10.2) mg/dL Procalcitonin (<0.5) ng/mL Imaging Data US Breast: Radiologist's Impression: no abscess Discharge Plan Departure Patient Disposition: Home Clinical Impression: Mastitis, acute Discharge Date/Time: 02/17/20 07:33 Instructions: DI for Mastitis Activity Restrictions/Additional Instructions: *You have been diagnosed with [left breast mastitis, no abscess noted] *What to do: *Take medications as directed *Follow up with your primary care provider in 2-3 days, call for an appointment. Let them know you were seen in the Emergency Department and that we ask that you be seen in follow up *Return to ER if you should have any new, worsening or concerning symptoms Prescriptions: New dicloxacillin 500 mg capsule 500 mg PO Q6H 10 Days Qty: 40 RF: 0 No Action (DME) Double Electric breast Pump and Supplies See Rx Instructions .ROUTE .MEDSUPPLY Qty: 1 RF: 0 prenat.vits,rivka,zjx-bisw-hifoh Tablet 1 tab PO DAILY RF: 0 acetaminophen 325 mg Tablet 975 mg PO Q8H PRN (Reason: Pain, Mild (1-3)) Qty: 0 RF: 0 ibuprofen 600 mg Tablet 600 mg PO Q6HR PRN (Reason: Fever/Mild Pain (1-3)) Qty: 90 RF: 1 docusate sodium 250 mg Capsule 250 mg PO DAILY Qty: 0 RF: 0 oxycodone 5 mg Tablet 5 mg PO Q4-6H PRN (Reason: Pain, Moderate (4-6)) Qty: 14 RF: 0 Dyl-E-Tstfjo Cream 1 applic topical PRN PRN (Reason: Sore Nipples) Qty: 0 RF: 0
--- NOTE | 2020-02-17 05:48 | DI.US.S_ITS ---
ULTRASOUND OF LEFT BREAST: 02/17/2020 CLINICAL: Focal left breast pain with redness, fever, tachydardia. Possible abscess. No prior exams were available for comparison. Color flow and real-time ultrasound of the left breast were performed. Amato scale images of the real-time examination were reviewed. There is skin thickening and heterogeneous soft tissue edema and inflammation of the upper inner aspect of the left breast with a more heterogeneously hypoechoic region measuring 5.2 cm x 1.9 cm x 2.7 cm. There is no organized fluid collection or abscess or suspicious mass lesion. IMPRESSION: PROBABLY BENIGN Likely left breast mastitis and concurrent cellulitis. No abscess formation, organized fluid collection or suspicious mass seen. This is probably benign. Recommend short course of antibiotics and follow up ultrasound and mammogram in one month to document stability versus resolution of this finding. Findings were discussed with Dr. Maria of the emergency department at 0930 hours. This exam was interpreted at Station ID: [id number]. Electronically Signed By: Tariq Ching M.D. at/:02/17/2020 10:09:55 letter sent: Followup Recommended Ultrasound BI-RADS: 3 Probably benign
[2020-02-17] MEDS: SODIUM CHLORIDE 0.9% 1,000 ML 1000 ML IV (06:13)
[2020-02-17] MEDS: ACETAMINOPHEN 325 MG TABLET 650 MG PO (06:13)
[2020-02-17] MEDS: fentaNYL 100 MCG/2 ML INJ 50 MCG IV (06:14)
[2020-02-17 06:15] LABS: Lactate (Lactic Acid) 1.1 mmol/L (0.7-2.1)
[2020-02-17 06:18] LABS: BUN Creatinine Ratio 19.5 (6-22); Blood Urea Nitrogen 17 mg/dL (7-17); Calcium 9.7 mg/dL (8.4-10.2); Carbon Dioxide 25 mmol/L (22-32); Chloride 103 mmol/L (98-107); Estimated Glomerular Filt Rate > 60.0 mL/min (>60); Glucose 97 mg/dL (70-100); HEMOLYSIS < 15 (0-50); Sodium 136 mmol/L (137-145)
[2020-02-17 06:34] LABS: Procalcitonin < 0.05 ng/mL (<0.5)
[2020-02-17 06:35] LABS: Add Manual Diff / Slide Review NO; Basophils Absolute Auto 0 /uL (0-100); Basophils Percent Auto 0.3 % (0-2); Eosinophils Absolute Auto 100 /uL (0-450); Eosinophils Percent Auto 1.4 % (2-4); Lymphocytes Absolute Auto 500 /uL (1100-4500); Lymphocytes Percent Auto 6.5 % (25-40); Mean Corpuscular HGB Conc 33.4 % (30-36); Mean Corpuscular Hemoglobin 29.9 PG (26-34); Mean Corpuscular Volume 89.4 fL (80-100); Monocytes Absolute Auto 400 /uL (0-900); Monocytes Percent Auto 5.8 % (3-14); Neutrophils Absolute Auto 6500 /uL (1500-7000); Platelet Count 269 X10^3/uL (150-400); Red Blood Cell Count 4.37 X10^6/uL (4.0-5.2); Red Cell Distribution Width 13.4 % (11.6-14.8); White Blood Cell Count 7.6 X10^3/uL (4.5-11.0)
== END 2020-02-17 07:33 | disposition home or self-care (01) ==
PROVIDERS: Emergency Provider Emergency Medicine
DX: N61.0 Mastitis without abscess (principal); R50.9 Fever, unspecified
CPT/HCPCS: 36415; 76642; 80048; 83605; 84145; 85025; 87040; 96361; 96374; 99284; J3010

== ENCOUNTER → 2020-03-09 13:03 | Outpatient (CLI) | payer BC, SELFPAY ==
[2020-03-09 14:28] LABS: Glucose Fasting 86 mg/dL (70-100)
[2020-03-09 15:54] LABS: Glucose Tol Interpretation INTERPRETATION
[2020-03-09 16:04] LABS: Glucose 1 Hour 129 mg/dL (70-170)
[2020-03-09 18:04] LABS: Glucose 2 Hour 123 mg/dL (70-140)
== END ==
PROVIDERS: Referring Provider Obstetrics & Gynecology; Visit Provider Obstetrics & Gynecology
DX: O24.419 Gestational diabetes mellitus in pregnancy, unspecified control (principal); Z98.891 History of uterine scar from previous surgery
CPT/HCPCS: 36415; 82951; 82952

== ENCOUNTER 2024-09-26 10:43 | Emergency (ER) | payer OTHER, SELFPAY ==
[2024-09-26 10:49] VITALS: BP 176/110; PULSE 90; RESP 14; TEMP 36.6; O2SAT 100; BMI 25.8
--- NOTE | 2024-09-26 10:52 | DI.US.S_ITS ---
PROCEDURE: US OB <= 14 WEEKS FETUS INDICATIONS: sent by pcp for US,pt has + with severe LLQ abd yosi OUTSIDE/PRIOR DATING DATA: Last menstrual period (LMP): 09/01/2024 LMP-based estimated date of delivery (SARAH): 06/08/2025 TECHNIQUE: Real-time scanning was performed of the fetus and maternal pelvic organs, with image documentation. Endovaginal scanning was also performed to better visualize the fetus and maternal ovaries. COMPARISON: None. FINDINGS: No intrauterine gestational sac is seen. A thick-walled left ovarian cyst is seen measuring 2.0 x 1.5 x 1.5 cm. No mass is seen in the left adnexa separate from the ovary. Trace free fluid in the pelvis and left adnexa. Right ovary appears normal. Arterial and venous Doppler flow is demonstrated to each ovary. IMPRESSION: 1. Left ovarian cyst most likely a corpus luteum cyst versus less likely ovarian ectopic . Close clinical correlation is recommended, especially in the setting of left lower quadrant pain. No adnexal mass is seen separate from the ovaries. 2. No definite intrauterine or ectopic is seen. Recommend correlation with clinical findings, serial beta HCG measurements, and follow-up ultrasound. Approved by: Tapan Jones M.D. on 09/26/2024 at 11:54
--- NOTE | 2024-09-26 13:11 | ED.FEMALEGU ---
HPI - Female Genitourinary <Elsy Benitez PA-C - Last Filed: 09/26/24 19:01> General Chief complaint: OB/Uterine Contractions Stated complaint: Left ovary pain Time Seen by Provider: 09/26/24 12:59 Mode of arrival: Ambulatory History of Present Illness HPI Narrative: Ms. Crystal Adamson is a pleasant 34-year-old female, currently , with history of in 2019 who presents to the emergency department for left lower quadrant abdominal pain and x1 day. Patient states her last menstrual period was 09/01/2024. She noticed some left lower quadrant pain that is very dull and mild and intermittent. States she has had some similar pain with ovulation earlier in the month. She has been trying to get . She does not currently have an OBGYN but she is scheduled on October [address] Summers. Denies abnormal vaginal discharge, bleeding, concern for STD, nausea, vomiting, fevers, chills, chest pain, shortness of breath. States she does have a history of high blood pressure but is not on any medication for it. Related Data Previous Rx's Medication Instructions Recorded paroxetine HCl 20 mg tablet 20 mg PO DAILY #30 tabs 03/09/20 Allergies Allergy/AdvReac Type Severity Reaction Status Date / Time No Known Drug Allergies Allergy Verified 09/26/24 10:49 Review of Systems <Elsy Benitez PA-C - Last Filed: 09/26/24 19:01> Review of Systems ROS Unobtainable: All systems reviewed & are unremarkable except as noted in HPI and below Patient History <Elsy Benitez PA-C - Last Filed: 09/26/24 19:01> Medical History Anxiety GDM (gestational diabetes mellitus) (~2019) Ovarian cyst (~2016) Surgical History S/P section (~01/30/20) No significant past surgical history Family History Father Diabetes mellitus History of heart disease Hypertension Stroke Mother Hypertension Hyperlipidemia History of renal disease Brother Hypertension Grandmother Stroke Hypertension Exam <Elsy Benitez PA-C - Last Filed: 09/26/24 19:01> Narrative Exam Narrative: GENERAL: 34 year old patient appears stated age. Well-developed patient, in no acute distress. NECK: Trachea midline. Cervical ROM intact. CARDIOVASCULAR: Regular rate and rhythm during exam. RESPIRATORY: ?Nonlabored respirations. ?Speaking in clear, full sentences. ?Clear to auscultation. Breath sounds equal bilaterally. No wheezes, rales, or rhonchi. ? GASTROINTESTINAL: Abdomen soft, non-tender, nondistended. Subjective prior pain in LLQ, no pain now, nontender. EXTREMITIES: No edema or joint tenderness. BACK: Nontender without deformity or crepitance. No flank tenderness. NEURO: AOx3. ?Clear speech. ?Moves all 4 extremities appropriately. SKIN: No rash or erythema of visible areas Initial Vital Signs Initial Vital Signs: Vital Signs Temperature 97.9 F 09/26/24 10:49 Pulse Rate 90 09/26/24 10:49 Respiratory Rate 14 09/26/24 10:49 Blood Pressure 176/110 H 09/26/24 10:49 Pulse Oximetry 100 09/26/24 10:49 Oxygen Delivery Method Room Air 09/26/24 10:49 <Gladys Vines DO - Last Filed: 09/29/24 07:27> Initial Vital Signs Initial Vital Signs: Vital Signs Temperature 97.9 F 09/26/24 10:49 Pulse Rate 90 09/26/24 10:49 Respiratory Rate 14 09/26/24 10:49 Blood Pressure 176/110 H 09/26/24 10:49 Pulse Oximetry 100 09/26/24 10:49 Oxygen Delivery Method Room Air 09/26/24 10:49 Course <Elsy Benitez PA-C - Last Filed: 09/26/24 19:01> Orders Ordered: Discontinued Medications Acetaminophen (Acetaminophen 325 Mg Tablet) 650 mg PO NOW ONE Stop: 09/26/24 13:13 Last Admin: 09/26/24 13:42 Dose: 650 mg Documented By: ROCAEL Albuterol/Ipratropium (Albuterol/Ipratropium 3 Ml Ampul) 3 ml INH NOW ONE Stop: 09/26/24 12:23 Last Admin: 09/26/24 12:42 Dose: Not Given Documented By: MILENA Consultations Consultation #1: Discussed case with on-call OBGYN Dr. Del Rosario. At this time patient's hCG is very low and she is very early in her . He personally ordered a 48 hour repeat hCG and progesterone level for the patient to have collected at the lab on Monday morning. Dr. Elizondo is the weekend on-call OBGYN. He stated that the OBGYN office we will plan to call the patient early next week to schedule an appointment. He recommends no other testing at this time. Time: 14:30 Vital Signs Vital signs: Vital Signs - 8 hr 09/26/24 15:15 Pulse Rate 94 H Respiratory Rate 18 Blood Pressure 153/97 H Pulse Oximetry 100 Oxygen Delivery Method Room Air <Gladys Vines DO - Last Filed: 09/29/24 07:27> Orders Ordered: Discontinued Medications Acetaminophen (Acetaminophen 325 Mg Tablet) 650 mg PO NOW ONE Stop: 09/26/24 13:13 Last Admin: 09/26/24 13:42 Dose: 650 mg Documented By: ROCAEL Albuterol/Ipratropium (Albuterol/Ipratropium 3 Ml Ampul) 3 ml INH NOW ONE Stop: 09/26/24 12:23 Last Admin: 09/26/24 12:42 Dose: Not Given Documented By: MILENA Vital Signs Vital signs: Vital Signs - 8 hr 09/26/24 15:15 Pulse Rate 94 H Respiratory Rate 18 Blood Pressure 153/97 H Pulse Oximetry 100 Oxygen Delivery Method Room Air MDM - Female Genitourinary <Elsy Benitez PA-C - Last Filed: 09/26/24 19:01> Medical Records Attestation: I reviewed the patient's medical records. Lab Data 09/26/24 13:19 09/26/24 13:19 Labs: Lab Results 09/26/24 09/26/24 Range/Units 13:19 13:46 WBC 9.0 (4.5-11.0) X10^3/uL RBC 4.96 (4.0-5.2) X10^6/uL Hgb 13.6 (12.0-16.0) g/dL Hct 41.3 (36-46) % MCV 83.3 (80-100) fL MCH 27.4 (26-34) PG MCHC 32.9 (30-36) % RDW 16.5 H (11.6-14.8) % Plt Count 246 (150-400) X10^3/uL Neut % (Auto) 74.5 (50-75) % Lymph % (Auto) 19.0 L (25-40) % Craig % (Auto) 5.4 (3-14) % Eos % (Auto) 0.6 L (2-4) % Baso % (Auto) 0.5 (0-2) % Neut # (Auto) 6700 (9193-0088) /uL Lymph # (Auto) 1700 (4863-2664) /uL Craig # (Auto) 500 (0-900) /uL Eos # (Auto) 100 (0-450) /uL Baso # (Auto) 0 (0-100) /uL Sodium 139 (137-145) mmol/L Potassium 3.7 (3.4-5.1) mmol/L Chloride 106 (98-107) mmol/L Carbon Dioxide 24 (22-32) mmol/L BUN 13 (7-17) mg/dL Creatinine 0.75 (0.52-1.04) mg/dL Estimated GFR > 60 (>60) mL/min BUN/Creatinine Ratio 17.3 (6-22) Glucose 90 (70-100) mg/dL Calcium 9.1 (8.4-10.2) mg/dL Total Bilirubin 0.3 (0.2-1.3) mg/dL AST 26 (14-36) IU/L ALT 19 (<35) IU/L Alkaline Phosphatase 58 (38-126) U/L Total Protein 7.9 (6.3-8.2) g/dL Albumin 4.7 (3.5-5.0) g/dL Globulin 3.2 (1.7-4.1) g/dL Albumin/Globulin Ratio 1.5 (1.0-2.8) HCG, Quant 142.69 mIU/mL Urine RBC None seen (0-5/HPF) Urine WBC None seen (0-5/HPF) Ur Squamous Epith Cells 0-1 /hpf (0-5/HPF) Urine Bacteria None seen (None) Ur Culture Indicated? Cult not indicated Vol Urine Centrifuged 10ml (spun) Point of Care Testing Test Results Positive Urine Dip Bedside Urine Glucose Negative Bedside Urine Bilirubin - Negative Bedside Urine Ketone - Negative Urine Specific [place] 1.015 Bedside Urine Occult Blood - Negative Bedside Urine pH 7 Bedside Urine Protein - Negative Bedside Urine Urobilinogen - Negative Bedside Urine Nitrite - Negative Bedside Urine Leukocytes - Negative Esterase Imaging Data US <14weeks: Radiologist's Impression: PROCEDURE: US OB <= 14 WEEKS FETUS INDICATIONS: sent by pcp for US,pt has + with severe LLQ abd yosi OUTSIDE/PRIOR DATING DATA: Last menstrual period (LMP): 09/01/2024 LMP-based estimated date of delivery (SARAH): 06/08/2025 TECHNIQUE: Real-time scanning was performed of the fetus and maternal pelvic organs, with image documentation. Endovaginal scanning was also performed to better visualize the fetus and maternal ovaries. COMPARISON: None. FINDINGS: No intrauterine gestational sac is seen. A thick-walled left ovarian cyst is seen measuring 2.0 x 1.5 x 1.5 cm. No mass is seen in the left adnexa separate from the ovary. Trace free fluid in the pelvis and left adnexa. Right ovary appears normal. Arterial and venous Doppler flow is demonstrated to each ovary. IMPRESSION: 1. Left ovarian cyst most likely a corpus luteum cyst versus less likely ovarian ectopic . Close clinical correlation is recommended, especially in the setting of left lower quadrant pain. No adnexal mass is seen separate from the ovaries. 2. No definite intrauterine or ectopic is seen. Recommend correlation with clinical findings, serial beta HCG measurements, and follow-up ultrasound. [facility] Narrative Medical decision making narrative: 34-year-old female, currently , with history of in 2019 who presents to the emergency department for left lower quadrant abdominal pain and x1 day. LMP 09/01/24, 3 weeks 4 days by dates. Differential diagnosis includes but is not limited to ectopic , UTI, ovarian cyst, early , miscarriage, etc. On exam the patient is in no acute distress, nontoxic appearing, she verbalizes that she is very anxious which she believes is contributing to her elevated blood pressure, in addition she has a history of hypertension not currently on any medications. She is here for intermittent left lower quadrant pain in early , pain is not currently present. Transvaginal ultrasound obtained while patient was in triage revealing left ovarian cyst most likely corpus luteum cyst versus less likely ovarian ectopic . Labs added revealing normal WBC count of 9.0, hemoglobin 13.6, hematocrit 41.3. Sodium 139, potassium 3.7, BUN 13 creatinine 0.75. UA neg. Her hCG quant is very low at 142.69 consistent with early . HCG quant not yet add discriminatory zone of 3510 therefore appropriate that we are not yet seeing an intrauterine . Consulted with OBGYN on-call Dr. Del Rosario. Discussed the patient's case and imaging. Patient needs repeat hCG quant in 48 hours, he ordered both this and progesterone level to be done at the outpatient lab on Monday morning. I discussed all results with patient and she understands the importance of this follow up lab report as we need to trend the hCG for concern of possible early ectopic versus early . She understands that if she develops any new or worsening symptoms to return to the ER immediately or if she can not have labs done then come to ER. Patient verbalized understanding of all information, blood pressure improved, OBGYN office will call her early next week for follow up appointment in addition I advised to follow up with PCP. Return precautions discussed, patient stable for discharge home <Gladys Vines DO - Last Filed: 09/29/24 07:27> Lab Data Labs: Lab Results 09/26/24 09/26/24 Range/Units 13:19 13:46 WBC 9.0 (4.5-11.0) X10^3/uL RBC 4.96 (4.0-5.2) X10^6/uL Hgb 13.6 (12.0-16.0) g/dL Hct 41.3 (36-46) % MCV 83.3 (80-100) fL MCH 27.4 (26-34) PG MCHC 32.9 (30-36) % RDW 16.5 H (11.6-14.8) % Plt Count 246 (150-400) X10^3/uL Neut % (Auto) 74.5 (50-75) % Lymph % (Auto) 19.0 L (25-40) % Craig % (Auto) 5.4 (3-14) % Eos % (Auto) 0.6 L (2-4) % Baso % (Auto) 0.5 (0-2) % Neut # (Auto) 6700 (5658-1380) /uL Lymph # (Auto) 1700 (4224-3555) /uL Craig # (Auto) 500 (0-900) /uL Eos # (Auto) 100 (0-450) /uL Baso # (Auto) 0 (0-100) /uL Sodium 139 (137-145) mmol/L Potassium 3.7 (3.4-5.1) mmol/L Chloride 106 (98-107) mmol/L Carbon Dioxide 24 (22-32) mmol/L BUN 13 (7-17) mg/dL Creatinine 0.75 (0.52-1.04) mg/dL Estimated GFR > 60 (>60) mL/min BUN/Creatinine Ratio 17.3 (6-22) Glucose 90 (70-100) mg/dL Calcium 9.1 (8.4-10.2) mg/dL Total Bilirubin 0.3 (0.2-1.3) mg/dL AST 26 (14-36) IU/L ALT 19 (<35) IU/L Alkaline Phosphatase 58 (38-126) U/L Total Protein 7.9 (6.3-8.2) g/dL Albumin 4.7 (3.5-5.0) g/dL Globulin 3.2 (1.7-4.1) g/dL Albumin/Globulin Ratio 1.5 (1.0-2.8) HCG, Quant 142.69 mIU/mL Urine RBC None seen (0-5/HPF) Urine WBC None seen (0-5/HPF) Ur Squamous Epith Cells 0-1 /hpf (0-5/HPF) Urine Bacteria None seen (None) Ur Culture Indicated? Cult not indicated Vol Urine Centrifuged 10ml (spun) Point of Care Testing Test Results Positive Urine Dip Bedside Urine Glucose Negative Bedside Urine Bilirubin - Negative Bedside Urine Ketone - Negative Urine Specific [place] 1.015 Bedside Urine Occult Blood - Negative Bedside Urine pH 7 Bedside Urine Protein - Negative Bedside Urine Urobilinogen - Negative Bedside Urine Nitrite - Negative Bedside Urine Leukocytes - Negative Esterase Discharge Plan Departure Patient Disposition: Home Clinical Impression: Early stage of , Left lower quadrant abdominal pain affecting Instructions: DI for Abdominal Pain-Adult Activity Restrictions/Additional Instructions: Today you were evaluated for left lower quadrant pain in . Based on your last menstrual period, you were about 3 weeks and 4 days estimated gestation. Your hCG blood level today was very low at 142.69 which is consistent with very early . Your ultrasound shows a possible cyst in the left ovary. In order to monitor you to rule out a possible ectopic , a repeat hCG blood test has been ordered in 48 hours. Please return to the hospital lab Monday morning to have this blood work taken. You should expect a phone call from the OBGYN office early next week for a follow up appointment. Return to the ER immediately for sudden or worsening pain, cramping, bleeding, fevers, chills, uncontrolled vomiting, any other concerns. Please rest, hydrate, take Tylenol if needed for pain. If for some reason you are unable to have labs redrawn on Monday, please come to the ER. Please follow up with your primary care doctor within the next 2-3 days for ER follow-up. (If you do not have a PCP you can call [phone]. ?to schedule an appointment with an [facility] Primary Care Provider) IF YOU DEVELOP ANY NEW OR WORSENING SYMPTOMS, RETURN TO THE ER! Please read the attached instructions, they highlight more specific treatments and interventions for you at home. Thank you for letting me participate in your care, Elsy Benitez PA-C Prescriptions: No Action paroxetine HCl 20 mg tablet 20 mg PO DAILY Qty: 30 11RF Referrals: Sivakumar Del Rosario MD [Physician] - (48 hour repeat HCG) Stand Alone Forms: Patient Portal/API/Survey ED Sign-out <Gladys Vines DO - Last Filed: 09/29/24 07:27> Cosign ED Attending Kaci Attestation: I was available for consultation.
[2024-09-26 13:36] LABS: Add Manual Diff / Slide Review NO; Basophils Absolute Auto 0 /uL (0-100); Basophils Percent Auto 0.5 % (0-2); Eosinophils Absolute Auto 100 /uL (0-450); Eosinophils Percent Auto 0.6 % (2-4); Hematocrit 41.3 % (36-46); Hemoglobin 13.6 g/dL (12.0-16.0); Lymphocytes Absolute Auto 1700 /uL (1100-4500); Mean Corpuscular HGB Conc 32.9 % (30-36); Mean Corpuscular Hemoglobin 27.4 PG (26-34); Mean Corpuscular Volume 83.3 fL (80-100); Monocytes Absolute Auto 500 /uL (0-900); Monocytes Percent Auto 5.4 % (3-14); Neutrophils Absolute Auto 6700 /uL (1500-7000); Neutrophils Percent Auto 74.5 % (50-75); Platelet Count 246 X10^3/uL (150-400); Red Blood Cell Count 4.96 X10^6/uL (4.0-5.2); Red Cell Distribution Width 16.5 % (11.6-14.8)
[2024-09-26] MEDS: ACETAMINOPHEN 325 MG TABLET 650 MG PO (13:42)
[2024-09-26 13:50] LABS: Alanine Aminotransferase 19 IU/L (<35); Albumin 4.7 g/dL (3.5-5.0); Albumin Globulin Ratio 1.5 (1.0-2.8); Alkaline Phosphatase 58 U/L (38-126); Aspartate Aminotransferase 26 IU/L (14-36); BUN Creatinine Ratio 17.3 (6-22); Bilirubin Total 0.3 mg/dL (0.2-1.3); Blood Urea Nitrogen 13 mg/dL (7-17); Calcium 9.1 mg/dL (8.4-10.2); Carbon Dioxide 24 mmol/L (22-32); Chloride 106 mmol/L (98-107); Estimated Glomerular Filt Rate > 60 mL/min (>60); Globulin 3.2 g/dL (1.7-4.1); Glucose 90 mg/dL (70-100); HEMOLYSIS < 15 (0-50); Potassium 3.7 mmol/L (3.4-5.1); Sodium 139 mmol/L (137-145); Total Protein 7.9 g/dL (6.3-8.2)
[2024-09-26 13:59] LABS: Bacteria Urine None Seen; RBC Urine None Seen (0-5/HPF); Squamous Epithelial Cell Urine 0-1 /HPF (0-5/HPF); Urine Volume 10mL (spun); WBC Urine None Seen (0-5/HPF)
[2024-09-26 14:00] LABS: Culture Indicated Urine Cult Not Indicated
[2024-09-26 14:07] LABS: HCG Quantitative /Beta subunit 142.69 mIU/mL
[2024-09-26 15:15] VITALS: BP 153/97; PULSE 94; RESP 18; O2SAT 100
== END 2024-09-26 15:16 | disposition home or self-care (01) ==
PROVIDERS: Emergency Provider Physician Assistant
DX: O26.891 Other specified pregnancy related conditions, first trimester (principal); R10.32 Left lower quadrant pain
CPT/HCPCS: 76801; 76817; 80053; 81003; 81015; 81025; 84702; 85025; 93976; 99283; 99284

== ENCOUNTER → 2024-09-28 11:28 | Outpatient (CLI) | payer SELFPAY ==
[2024-09-28 13:24] LABS: HCG Quantitative /Beta subunit 361.76 mIU/mL
== END ==
PROVIDERS: Referring Provider Obstetrics & Gynecology; Visit Provider Obstetrics & Gynecology
DX: O26.899 Other specified pregnancy related conditions, unspecified trimester (principal); R10.30 Lower abdominal pain, unspecified
CPT/HCPCS: 36415; 84144; 84702

== ENCOUNTER → 2024-11-15 10:17 | Outpatient (CLI) | payer OTHER, SELFPAY ==
[2024-11-15 10:46] LABS: Add Manual Diff / Slide Review NO; Basophils Absolute Auto 100 /uL (0-100); Basophils Percent Auto 0.6 % (0-2); Eosinophils Absolute Auto 100 /uL (0-450); Eosinophils Percent Auto 0.8 % (2-4); Hematocrit 41.8 % (36-46); Lymphocytes Absolute Auto 1300 /uL (1100-4500); Lymphocytes Percent Auto 13.5 % (25-40); Mean Corpuscular HGB Conc 33.5 % (30-36); Mean Corpuscular Hemoglobin 28.6 PG (26-34); Mean Corpuscular Volume 85.3 fL (80-100); Monocytes Absolute Auto 500 /uL (0-900); Neutrophils Absolute Auto 8000 /uL (1500-7000); Neutrophils Percent Auto 80.1 % (50-75); Platelet Count 255 X10^3/uL (150-400); White Blood Cell Count 9.9 X10^3/uL (4.5-11.0)
[2024-11-15 10:50] LABS: Hemoglobin A1C% w Est Avg Glu 4.9 % (4.0-6.0)
[2024-11-15 10:58] LABS: Alanine Aminotransferase 31 IU/L (<35); Aspartate Aminotransferase 30 IU/L (14-36); BUN Creatinine Ratio 15.4 (6-22); Blood Urea Nitrogen 10 mg/dL (7-17); Estimated Glomerular Filt Rate > 60 mL/min (>60); Uric Acid 3.4 mg/dL (2.5-6.2)
[2024-11-15 11:21] LABS: Natera Collection Specimen Collected
[2024-11-15 11:31] LABS: Hepatitis B Surface Antigen NEGATIVE s/c (NEGATIVE)
[2024-11-15 11:46] LABS: HIV 1 & 2 Ab/Ag 4th Gen Combo NEGATIVE (NEGATIVE); Hep C Virus Ab w/Reflex Quant NEGATIVE s/c (NEGATIVE)
[2024-11-15 15:48] LABS: Creatinine Urine Random 63.21 mg/dL; Protein (Total) Urine Random 7 mg/dL (0-12); Protein Creatinine Ratio Urine 0.11 GRAM/24H
[2024-11-16 04:38] LABS: RPR Screen Non Reactive (Non Reactive)
[2024-11-18 13:41] LABS: Varicella IgG Antibody Reactive (Non Reactive)
== END ==
PROVIDERS: Referring Provider Student in an Organized Health Care Education/Training Program; Visit Provider Student in an Organized Health Care Education/Training Program
DX: O09.299 Supervision of pregnancy with other poor reproductive or obstetric history, unspecified trimester (principal); Z86.32 Personal history of gestational diabetes; O10.919 Unspecified pre-existing hypertension complicating pregnancy, unspecified trimester
CPT/HCPCS: 36415; 80055; 82565; 82570; 83036; 84156; 84450; 84460; 84520; 84550; 86787; 86803; 86850; 86900; 86901; 87086; 87389

== ENCOUNTER → 2025-01-24 10:57 | Outpatient (CLI) | payer BC, SELFPAY ==
--- NOTE | 2025-01-24 11:00 | DI.US.S_ITS ---
PROCEDURE: US OB >= 14 WEEKS FETUS INDICATIONS: 20 weeks anatomy OUTSIDE/PRIOR DATING DATA: Last menstrual period (LMP): 09/01/24 LMP-based estimated date of delivery (SARAH): 06/08/25. First dating scan (date and location): Physician office ultrasound, 11/01/24. Estimated date of delivery (SARAH) from first dating scan: 06/05/25. TECHNIQUE: Real-time scanning was performed of the fetus, with image documentation and biometric measurements. Endovaginal scanning: Not needed COMPARISON: [facility], , OB >= 14 WEEKS FETUS, 01/22/2020, 12:31. [facility], , US OB >= 14 WEEKS FETUS, 12/16/2019, 12:21. FINDINGS: General: A single living intrauterine gestation is present. Presentation: Vertex. Placenta: Placental position is posterior , without previa. Amniotic fluid index: 13.3 cm, normal range is 5-24 cm. Single deepest vertical pocket is 4.6 cm. heart rate: 136 beats per minute. Maternal cervical canal: 5 cm long. Normal lower limit is 2.5 cm. biometrics: Biparietal diameter: 5.5 cm, 22 weeks 5 days Head circumference: 20.1 cm, 22 weeks 2 days Abdominal circumference: 18.1 cm, 22 weeks 6 days Femur length: 3.7 cm, 21 weeks 6 days Clinically estimated gestational age: 20 weeks 5 days Composite gestational age from present scan: 22 weeks 3 days Estimated weight and percentile: 503 g, 99th percentile or greater. Anatomic survey: Neuro: Ventricles are non-dilated at less than 10 mm. Cisterna magna is normal at 3-11 mm. Cerebellum is normal in size and morphology. Nuchal skin fold: Normal at less than 6 mm between 14-21 weeks gestational age. Face: Nose and lips, facial profile are normal. Spine: No evidence for spina bifida. Heart: 4-chambered heart is present, with normal ventricular outflow tracts. Diaphragm: Diaphragm is intact. Stomach: Left-sided stomach is present. Kidneys: No hydronephrosis. Normal is less than 5 mm in 2nd trimester, less than 7 mm in 3rd trimester. Cord: 3-vessel cord has orthotopic insertion. Bladder: Normal in size. Extremities: All 4 extremities identified. IMPRESSION: Single living intrauterine gestation with reported MD 1st OB ultrasound. The current study interpretation is based on dating from that prior study and sets the current weight in the macrosomia range. Careful clinical follow-up and correlation with risk factors for macrosomia is recommended, and additional biometry OB ultrasound is recommended within several weeks. We strive to produce accurate, complete, and clear reports of imaging services. To assist us in improving patient care, this report was composed using standard report templates and voice recognition software. Therefore, it may contain abnormal punctuation, insertions and/or omissions. Occasional wrong-word or sound-alike substitutions may occur. Though we review the report and make efforts to correct it, we do recommend that the report be read carefully in proper context to recognize any text inaccuracies. Dictated by: Jann Champagne M.D. on 01/24/2025 at 16:13 Approved by: Jann Champagne M.D. on 01/24/2025 at 16:19
== END ==
LOC: US 10:59
PROVIDERS: Referring Provider Student in an Organized Health Care Education/Training Program; Visit Provider Student in an Organized Health Care Education/Training Program
DX: Z34.82 Encounter for supervision of other normal pregnancy, second trimester (principal); Z3A.20 20 weeks gestation of pregnancy
CPT/HCPCS: 76811

== ENCOUNTER → 2025-02-19 11:20 | Outpatient (CLI) | payer BC, SELFPAY ==
[2025-02-19 13:50] LABS: Hematocrit 34.8 % (36-46)
[2025-02-19 14:12] LABS: GTT (PREG) 1 Hour PP 50gm Dose 187 mg/dL (76-139)
== END ==
PROVIDERS: Referring Provider Student in an Organized Health Care Education/Training Program; Visit Provider Student in an Organized Health Care Education/Training Program
DX: Z13.1 Encounter for screening for diabetes mellitus (principal); Z13.0 Encounter for screening for diseases of the blood and blood-forming organs and certain disorders involving the immune mechanism
CPT/HCPCS: 36415; 82950; 85014; 85018

== ENCOUNTER → 2025-03-28 12:04 | Outpatient (CLI) | payer BC, SELFPAY ==
[2025-03-29 12:11] LABS: Trichomoas vaginalis Negative (Negative)
== END ==
PROVIDERS: Visit Provider Student in an Organized Health Care Education/Training Program
DX: N89.8 Other specified noninflammatory disorders of vagina (principal)
CPT/HCPCS: 87480; 87510; 87660

== ENCOUNTER → 2025-04-11 14:11 | Outpatient (CLI) | payer BC, SELFPAY ==
[2025-04-11 14:44] LABS: Add Manual Diff / Slide Review NO; Hematocrit 35.5 % (36-46); Hemoglobin 12.0 g/dL (12.0-16.0); Lymphocytes Absolute Auto 1200 /uL (1100-4500); Mean Corpuscular HGB Conc 33.9 % (30-36); Mean Corpuscular Hemoglobin 29.5 PG (26-34); Mean Corpuscular Volume 87.0 fL (80-100); Platelet Count 224 X10^3/uL (150-400)
[2025-04-11 15:07] LABS: Alanine Aminotransferase 18 IU/L (<35); Albumin 3.4 g/dL (3.5-5.0); Albumin Globulin Ratio 1.2 (1.0-2.8); Alkaline Phosphatase 88 U/L (38-126); Blood Urea Nitrogen 13 mg/dL (7-17); Calcium 9.3 mg/dL (8.4-10.2); Carbon Dioxide 22 mmol/L (22-32); Chloride 103 mmol/L (98-107); Estimated Glomerular Filt Rate > 60 mL/min (>60); Globulin 2.8 g/dL (1.7-4.1); Glucose 82 mg/dL (70-99); HEMOLYSIS < 15 (0-50); Potassium 4.2 mmol/L (3.4-5.1); Sodium 132 mmol/L (137-145); Total Protein 6.2 g/dL (6.3-8.2)
[2025-04-11 16:51] LABS: Protein (Total) Urine Random 10 mg/dL (0-12); Protein Creatinine Ratio Urine 0.08 GRAM/24H
== END ==
PROVIDERS: Referring Provider Student in an Organized Health Care Education/Training Program; Visit Provider Student in an Organized Health Care Education/Training Program
DX: O10.919 Unspecified pre-existing hypertension complicating pregnancy, unspecified trimester (principal)
CPT/HCPCS: 36415; 80053; 82570; 84156; 85025

== ENCOUNTER 2025-05-19 11:11 | Outpatient (CLI) | payer BC, SELFPAY ==
--- NOTE | 2025-05-19 12:25 | PM.OBTRLD ---
Visit Information Visit Information Date of evaluation: 05/19/25 Primary OB Provider: Maylin Courtney Reason for Evaluation: Yes non-stress test Vital Signs Vital Signs: BPs 140-158/85-95 [facility] Medical History (Updated 02/28/25 @ 14:24 by Maylin Courtney DO) Chronic hypertension affecting Endometritis following delivery GDM (gestational diabetes mellitus) (~2019) Ovarian cyst (~2016) Surgical History (Updated 10/11/24 @ 13:32 by Maylin Courtney DO) S/P section (~01/30/20) Family History (Updated 10/24/24 @ 11:26 by Luzmaria Ortiz RN) Father Diabetes mellitus History of heart disease Hypertension Stroke Mother Hypertension Hyperlipidemia History of renal disease Brother Hypertension Grandmother Stroke Hypertension Uncle Down syndrome Social History marital status: number of children: 1 household members: spouse and children lives independently: Yes caregiver/support person: Yes housing: house pets and animals: Yes (dog) education level: college occupational status: employed current occupational exposures/hazards: Yes special beau needs: No travel history: over 6 months ago seatbelt use: always water heater temp set < 120 deg: Yes working smoke detector in home: Yes fire extinguisher in home: Yes carbon monox detector in home: Yes firearms in home: No do you feel safe at home: Yes second hand exposure: No alcohol intake: former substance use type: does not use during the past year weight has: remained stable well-balanced diet: about half the time daily servings fruits/ve-4 caffeine: Yes (stopped AM cup coffee w/ ) Type(s) of exercise: walking duration: < 15 minutes/day Evaluation Evaluation Baseline heart rate: 120 Variability: Moderate (6-25) monitor accelerations: Present Monitor Decelerations: Absent Category of Tracing: Reactive Diagnosis, Plan/Disposition Final Diagnosis (1) Chronic hypertension affecting : Status: Acute Plan/Disposition Plan: Patient with chronic hypertension, on labetalol 100 mg p.o. b.i.d., sent over from clinic for NST. In clinic her blood pressure was within normal limits, and her blood pressure log from home showed normal blood pressures over the last several weeks. Given that her blood pressures in triage today are inconsistent with other monitoring, as well as the fact that she is asymptomatic, will hold off on changing her antihypertensive medication at this time. -patient encouraged to continue monitoring her blood pressures at home, and notify my office if her values are elevated OB Disposition: home
== END 2025-05-19 12:08 | disposition home or self-care (01) ==
LOC: LABOR 12:16 → OB 05-20 08:21
PROVIDERS: Referring Provider Student in an Organized Health Care Education/Training Program; Visit Provider Student in an Organized Health Care Education/Training Program
DX: O10.913 Unspecified pre-existing hypertension complicating pregnancy, third trimester (principal); Z3A.37 37 weeks gestation of pregnancy
CPT/HCPCS: 59025; G0378; G0379

== ENCOUNTER 2025-05-23 17:21 | Observation (INO) | payer BC, SELFPAY ==
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
[2025-05-23 18:32] LABS: Add Manual Diff / Slide Review NO; Hematocrit 34.1 % (36-46); Hemoglobin 11.6 g/dL (12.0-16.0); Lymphocytes Absolute Auto 1300 /uL (1100-4500); Mean Corpuscular HGB Conc 34.1 % (30-36); Mean Corpuscular Hemoglobin 29.2 PG (26-34); Mean Corpuscular Volume 85.6 fL (80-100); Platelet Count 192 X10^3/uL (150-400)
[2025-05-23 18:46] LABS: INR 0.9 (0.9-1.3); Prothrombin Time 10.0 SECONDS (9.4-12.5)
[2025-05-23 18:49] LABS: Alanine Aminotransferase 16 IU/L (<35); Albumin 3.5 g/dL (3.5-5.0); Albumin Globulin Ratio 1.1 (1.0-2.8); Alkaline Phosphatase 114 U/L (38-126); Blood Urea Nitrogen 14 mg/dL (7-17); Calcium 9.0 mg/dL (8.4-10.2); Carbon Dioxide 24 mmol/L (22-32); Chloride 104 mmol/L (98-107); Estimated Glomerular Filt Rate > 60 mL/min (>60); Globulin 3.2 g/dL (1.7-4.1); Glucose 78 mg/dL (70-99); HEMOLYSIS < 15 (0-50); Potassium 4.0 mmol/L (3.4-5.1); Sodium 134 mmol/L (137-145); Total Protein 6.7 g/dL (6.3-8.2); Uric Acid 5.3 mg/dL (2.5-6.2)
[2025-05-23 19:44] LABS: Protein (Total) Urine Random 12 mg/dL (0-12); Protein Creatinine Ratio Urine 0.13 GRAM/24H
== END 2025-05-23 19:58 | disposition home or self-care (01) ==
LOC: LABOR 17:21
PROVIDERS: Admitting Provider Student in an Organized Health Care Education/Training Program; Referring Provider Student in an Organized Health Care Education/Training Program; Visit Provider Student in an Organized Health Care Education/Training Program
DX: O10.913 Unspecified pre-existing hypertension complicating pregnancy, third trimester (principal); O26.893 Other specified pregnancy related conditions, third trimester; V43.62XA Car passenger injured in collision with other type car in traffic accident, initial encounter; Y92.410 Unspecified street and highway as the place of occurrence of the external cause; Z3A.37 37 weeks gestation of pregnancy
CPT/HCPCS: 59025; 59050; 76815; 80053; 84550; 85025; 85610; G0378; G0379

== ENCOUNTER 2025-05-26 11:10 | Outpatient (CLI) | payer BC, SELFPAY ==
--- NOTE | 2025-05-26 12:23 | P.TNLD_ITS ---
Visit Information Visit Information Date of evaluation: 05/26/25 Primary OB Provider: Maylin Courtney Reason for Evaluation: Yes non-stress test Vital Signs Vital Signs: BPs ranging 151-167/88-100 PFSH Medical History (Updated 05/26/25 @ 12:23 by Maylin Courtney DO) Chronic hypertension affecting Endometritis following delivery GDM (gestational diabetes mellitus) (~2019) Ovarian cyst (~2016) Surgical History S/P section (~01/30/20) Family History Father Diabetes mellitus History of heart disease Hypertension Stroke Mother Hypertension Hyperlipidemia History of renal disease Brother Hypertension Grandmother Stroke Hypertension Uncle Down syndrome Social History marital status: number of children: 1 household members: spouse and children lives independently: Yes caregiver/support person: Yes housing: house pets and animals: Yes (dog) education level: college occupational status: employed current occupational exposures/hazards: Yes special beau needs: No travel history: over 6 months ago seatbelt use: always water heater temp set < 120 deg: Yes working smoke detector in home: Yes fire extinguisher in home: Yes carbon monox detector in home: Yes firearms in home: No do you feel safe at home: Yes second hand exposure: No alcohol intake: former substance use type: does not use during the past year weight has: remained stable well-balanced diet: about half the time daily servings fruits/ve-4 caffeine: Yes (stopped AM cup coffee w/ ) Type(s) of exercise: walking duration: < 15 minutes/day Evaluation Evaluation Baseline heart rate: 125 Variability: Moderate (6-25) monitor accelerations: Present Monitor Decelerations: Absent Category of Tracing: Reactive Diagnosis, Plan/Disposition Final Diagnosis (1) Chronic hypertension affecting : Status: Acute Plan/Disposition Plan: 35-year-old at 38+ 1 weeks with course complicated by chronic hypertension, presenting to L & D today for scheduled NST after clinic visit. Her blood pressures in the Center today have been mild to severe range, and patient remains asymptomatic. Her blood pressure in clinic today was normal, and all her blood pressures at home have been normal as well. We discussed that she now has two triage visits with mild to severe range blood pressures, which indicates possible preeclampsia development at this time. We discussed that it is difficult to determine however since her blood pressures at home are normal and in the clinic have been normal. She had normal lab work done this weekend as well. I discussed with her that delivery today would be the most conservative option, as she does meet criteria for worsening chronic hypertension in , however patient declines delivery today. 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 I recommended that she at least come in for an NST, blood pressures, and pre-e labs on Monday this week, which patient is amenable to. Discussed that if her blood pressures are elevated on Monday, delivery is again going to be recommended, but audelia [place] it is her decision. -advised to increase her labetalol to 200 mg b.i.d. as we had discussed in the office today; recommended she continue to take her blood pressure at home, and call if she notices that her blood pressures at home are mild or severe range -we reviewed preeclampsia symptoms, and recommended that she come in immediately if she has any of these symptoms develop -plan for follow up on Monday this week, which is 4 days from now OB Disposition: home
== END 2025-05-26 12:20 | disposition home or self-care (01) ==
LOC: LABOR 11:33 → OB 13:24
PROVIDERS: Referring Provider Student in an Organized Health Care Education/Training Program; Visit Provider Student in an Organized Health Care Education/Training Program
DX: O10.913 Unspecified pre-existing hypertension complicating pregnancy, third trimester (principal); Z3A.38 38 weeks gestation of pregnancy
CPT/HCPCS: 59025; G0378; G0379

== ENCOUNTER 2025-06-02 05:44 | Inpatient (IN) | payer BC, SELFPAY ==
--- NOTE | 2025-05-30 12:07 | PC.NURSE ---
I called Chelsie today to check on her as she did not show up for her NST and pre E labs. Her answered the phone and said the pt would not be coming they were hoping to have the C section today but never heard back from the triage nurse until today. stated that Chelsie was a little frustrated and felt like it would be more stressful on her body to come in for the NST and labs. They are scheduled for a C section on Monday and plan on coming in then. I expressed to them we just want to make sure Chelsie and the baby are safe and the are welcome to come in at any time if they feel like it is needed.
--- NOTE | 2025-06-02 | PATH_ITS ---
[facility] Accession Number: [id number] No. of containers..01 Tissue . 01 Material submitted: . fallopian tube - BILATERAL FALLOPIAN TUBES . 01 Diagnosis: BILTERAL FALLOPIAN TUBES, BILATERAL SALPINGECTOMY: Benign fallopian tubes and paratubal cysts. MRV 06/09/2025 174 Local . 01 Electronically signed: . Dimple Joyce MD, Pathologist NPI- [id number] . 01 Gross description: . Received in formalin with two identifiers and no legible site on jar, are two unoriented fimbriated fallopian tubes 8.5 x 1.5 cm and 6.7 x 1.1 cm. Both tubes have violaceous, smooth serosa with cystic structures up to 0.5 cm in greatest dimension filled with cloudy serous fluid. The lumen are stellate and unremarkable. Clarifier sections are submitted as follows: A1: Longer fallopian tube. A2: [place] fallopian tube. ([id number]) /OSCAR 06/03/20251958 Local . 01 Pathologist provided ICD-10: O34.219 . 01 CPT . 908188 Specimen Comment: A courtesy copy of this report has been sent to [facility] Pathology Performed at: [address] [facility], [place], [place] [id number] MD Rene Davis MD Phone: [phone]
[2025-06-02 06:43] LABS: Add Manual Diff / Slide Review NO; Hematocrit 34.8 % (36-46); Hemoglobin 11.8 g/dL (12.0-16.0); Lymphocytes Absolute Auto 1300 /uL (1100-4500); Mean Corpuscular HGB Conc 34.0 % (30-36); Mean Corpuscular Hemoglobin 28.8 PG (26-34); Mean Corpuscular Volume 84.7 fL (80-100); Platelet Count 172 X10^3/uL (150-400)
[2025-06-02 07:03] LABS: Alanine Aminotransferase 25 IU/L (<35); Albumin 3.6 g/dL (3.5-5.0); Albumin Globulin Ratio 1.1 (1.0-2.8); Alkaline Phosphatase 122 U/L (38-126); Blood Urea Nitrogen 10 mg/dL (7-17); Calcium 8.8 mg/dL (8.4-10.2); Carbon Dioxide 23 mmol/L (22-32); Chloride 105 mmol/L (98-107); Estimated Glomerular Filt Rate > 60 mL/min (>60); Globulin 3.2 g/dL (1.7-4.1); Glucose 72 mg/dL (70-99); HEMOLYSIS < 15 (0-50); Potassium 3.9 mmol/L (3.4-5.1); Sodium 133 mmol/L (137-145); Total Protein 6.8 g/dL (6.3-8.2)
--- NOTE | 2025-06-02 07:29 | PM.OBHP.IH.1 ---
OB HPI Date/Time Date of admission: 06/02/25 Date Patient Seen: 06/02/25 Time Patient Seen: 07:29 History of Present Condition Chief complaint: INPT C SECTION SARAH Calculator Estimated Delivery Date Method Current WG Current Estimate 06/08/25 LMP (Certain) 39w 1d Other Estimates 06/05/25 Ultrasound #1 39w 4d Estimated Gestational Age (weeks): 39w1d : 2 Para: 1 Narrative: Patient is a 35yo @ 39w1d presents to L&D for scheduled repeat with bilateral salpingectomy for permanent sterilization. no complaints. good movement this am. Partner (James) with her for support. denies ctxs/LOF/VB. Patient confirms that she does not desire TOLAC and desires to proceed with repeat and permanent sterilization today. care: good care Dating criteria OB: LMP confirmed by 1st trimester US Ultrasounds: normal 1st trimester US Obstetrical complications: gestational diabetes Narrative: PMH includes Chronic HTN- currently on Labetalol 200mg BID Anxiety Indications Operative indications ( section): previous uterine surgery Preadmission Labs Last OB Lab Results: Blood Type B Positive 11/15/24, 10:21 Antibody Screen Negative 11/15/24, 10:21 Hct, (36-46) 34.8 % L Today, 06:16 Hgb, (12.0-16.0) 11.8 g/dL L Today, 06:16 Hep Bs Antigen, (NEGATIVE) Negative s/c 11/15/24, 10:21 Hepatitis C Antibody, (NEGATIVE) Negative s/c 11/15/24, 10:21 Rubella Antibody, (>15) 169.0 IU/mL 11/15/24, 10:21 VZV IgG Antibody, (Non Reactive) Reactive 11/15/24, 10:21 Glucose 1 Hr 50 gm, (76-139) 187 mg/dL H 02/19/25, 13:12 Hemoglobin A1c, (4.0-6.0) 4.9 % 11/15/24, 10:21 Group B Strep (PCR) Neg for grp b strep 05/09/25, 11:00 -: Chlamydia screen: negative, Gonorrhea screen: negative and Urine: negative -: PAP smear: Normal Genetic Screens: Cell-free DNA: Normal External Labs -: Urine: negative Prior (ies) Past Pregnancies Del. Date GA/Weeks Labor Lgth Wt Sex Route Outcome Anesthesia Place Delv Breastfeed Preg Comp Name 01/30/20 39.2 12 8 lb 3 oz Male live - full term epidural IH Attempted [facility] Medical History (Updated 05/26/25 @ 12:23 by Maylin Courtney DO) Chronic hypertension affecting Endometritis following delivery GDM (gestational diabetes mellitus) (~2019) Ovarian cyst (~2016) Surgical History S/P section (~01/30/20) Family History Father Diabetes mellitus History of heart disease Hypertension Stroke Mother Hypertension Hyperlipidemia History of renal disease Brother Hypertension Grandmother Stroke Hypertension Uncle Down syndrome Social History marital status: number of children: 1 household members: spouse and children lives independently: Yes caregiver/support person: Yes housing: house pets and animals: Yes (dog) education level: college occupational status: employed current occupational exposures/hazards: Yes special beau needs: No travel history: over 6 months ago seatbelt use: always water heater temp set < 120 deg: Yes working smoke detector in home: Yes fire extinguisher in home: Yes carbon monox detector in home: Yes firearms in home: No do you feel safe at home: Yes second hand exposure: No alcohol intake: former substance use type: does not use during the past year weight has: remained stable well-balanced diet: about half the time daily servings fruits/ve-4 caffeine: Yes (stopped AM cup coffee w/ ) Type(s) of exercise: walking duration: < 15 minutes/day Meds Home Medications and Allergies Home Medications ?Medication ?Instructions ?Recorded ?Confirmed ?Type vitamin-ferrous sulfate tab PO 10/24/24 05/26/25 History 27 mg iron-folic acid 0.8 mg tablet blood sugar diagnostic (Blood #100 ea 05/20/25 05/26/25 Rx Glucose Test strips) labetalol 100 mg tablet 100 mg PO BID #60 tabs 05/20/25 05/26/25 Rx lancets 28 gauge (FreeStyle #100 ea 05/20/25 05/26/25 Rx Lancets) Allergies Allergy/AdvReac Type Severity Reaction Status Date / Time No Known Drug Allergies Allergy Verified 05/26/25 11:01 Review of Systems Review of Systems ROS: Yes All systems reviewed with the patient and are negative except as otherwise documented OB Exam HENMT Head: normal to inspection Resp Effort & Inspection: normal respiratory effort and able to speak in complete sentences Auscultation: clear to auscultation bilaterally Cardio Rate: regular rate Rhythm: regular rhythm Heart Sounds: no murmurs GI Inspection: normal to inspection Palpation: Yes soft Objective Labs 06/02/25 06:16 06/02/25 06:16 Labs: Laboratory Results - last 24 hr 06/02/25 06:16 WBC 8.0 RBC 4.11 Hgb 11.8 L Hct 34.8 L MCV 84.7 MCH 28.8 MCHC 34.0 RDW 15.5 H Plt Count 172 Neut % (Auto) 76.7 H Lymph % (Auto) 16.1 L [place] % (Auto) 6.8 Eos % (Auto) 0.2 L Baso % (Auto) 0.2 Neut # (Auto) 6100 Lymph # (Auto) 1300 [place] # (Auto) 500 Eos # (Auto) 0 Baso # (Auto) 0 Sodium 133 L Potassium 3.9 Chloride 105 Carbon Dioxide 23 BUN 10 Creatinine 0.70 Estimated GFR > 60 BUN/Creatinine Ratio 14.3 Glucose 72 Calcium 8.8 Total Bilirubin 0.3 AST 34 ALT 25 Alkaline Phosphatase 122 Total Protein 6.8 Albumin 3.6 Globulin 3.2 Albumin/Globulin Ratio 1.1 Assessment and Plan Assessment and Plan Assessment and Plan narrative: Patient is a 35yo @ 39w1d presents for schecueld repeat and bialteral salpingectomy 1. Repeat - admit to L&D -CEFM, VIF, NPO - anesthesia aware - decliens TOLAC -r eviewed risks of surgery including bleeding, pain, infection, injury to surrounding organs/tissues including the bladder/bowel/ureters. all questions answered and desires to proceed. - desires permanent sterilization-- reviewed that this is non reversible and reviewed benefit of bilateral salpingectomy technique 2. CHTN - cotninue labetalol 200mg BID - no s/s of Pre E at this time, will cotninue to monitor PP FHTs category 1 Time-Based Coding :: [TOTAL MINUTES] spent with patient and on the chart (including review of chart, obtaining history, exam, reviewing outside data, placing orders, documenting exam and treatment plan, and counseling patient) on [DATE].
[2025-06-02] MEDS: FAMOTIDINE 20 MG/2 ML VIAL IV (07:37)
[2025-06-02] MEDS: METOCLOPRAMIDE 10 MG/2 ML INJ IV (07:37)
[2025-06-02] MEDS: CITRIC ACID/SODIUM CITRATE 15 ML SOLUTION 30 ML PO (07:38)
[2025-06-02] MEDS: LABETALOL 100 MG TABLET 200 MG PO ×2 (07:46→20:54)
--- NOTE | 2025-06-02 08:27 | SUR.OPER ---
Supine on Padded OR bed, head on pillow, safety belt at thigh, arms secured on padded arm boards at <90 degrees abduction. Bump under right buttock. Legs uncrossed with, gel pad to heels, tape over blanket to lower legs.
[2025-06-02] MEDS: ACETAMINOPHEN IV 1,000 MG/100 ML VIAL 400 MG IV (08:45)
--- NOTE | 2025-06-02 09:24 | PM.OP.1 ---
Operative Date/Time/Diagnoses Date of procedure: 06/02/25 Time of procedure: 08:30 Pre-op diagnosis: IUP @ 39wks Previous section, declines TOLAC desires permanent sterilization Post-op diagnosis: same Procedure & Clinicians Procedure: Repeat Low Transverse section + bilateral salpingectomy Same procedure(s) as scheduled: Yes Indications: Previous , declines TOLAC desires permanent sterilization Surgeon: Brooke Liz Assisted?: Yes Manager Managing: Perla Mahoney Anesthesia Type: Spinal Operative Notes Findings: viable male infant, apgars- 9/9, normal 3VC intact placenta, clear fluid, normal tubes and ovaries Closure Type: primary Specimen(s): other (Bilateral fallopian tubes) Applied: catheter Estimated Blood Loss (mL): 350 Blood products transfused: none Procedure in detail: Under Spinal anaesthetic with a valderrama catheter inserted, the patient was prepped and draped in the usual sterile fashion in the supine position with a leftward tilt.The previous pfanennstiel skin incision scar was excised and the incision was carried down to the fascia with sharp dissection and cautery. The fascia was incised transversely and dissected off the rectus muscle using blunt and sharp dissection. Electrocautery was used for hemostasis. The peritoneum was opened taking care not to injure the bladder. The vesicouterine peritoneum was dissected off the lower uterine segment. The lower segment was assessed and a low transverse incision was made. The uterine incision was extended bluntly in cephalocaudad direction. The fetus was presenting as vertex. The head was delivered without difficulty and the rest of the body followed easily. After one minute of delayed cord clamping, the cord was clamped twice and cut and the baby transferred to the warm, awaiting the nursing staff. Cord gases were then obtained. The placenta was then delivered spontaneously with assistance. The uterus was explored and cleared of all clots and debris. The uterine incision was then closed in 2 layers. The first layer was locking and the second was imbricating. 0-vicryl was used for the first layer and 0- monocryl for the second layer. Tubes and ovaries were examined and appeared normal. The left fallopian tube is excised along the mesosalpinx from the fimbriated end to the uterine cornua. This was repeated on the right fallopian tube and both tubes were sent to pathology. The fascia was closed using 0- vicryl in a running unlocked fashion. The subcutaneous adipose was approximated with 3-0 Chromic with interrupted stitches. The skin was then re approximated with a running monocryl subcuticular suture. At the end of the procedure all sponges, instruments, and sharps were counted and correct. Estimated blood loss was 350 ml. The patient and baby were taken to the recovery in stable condition. Complications: none Post-operative Condition: stable Disposition: PACU
[2025-06-02] MEDS: LACTATED RINGERS 1,000 ML 999 ML IV (09:29)
[2025-06-02 09:30] VITALS: BP 134/80; PULSE 57; RESP 16; TEMP 36.1; O2SAT 97
[2025-06-02 09:35] VITALS: BP 127/57; PULSE 58; RESP 14; O2SAT 97
[2025-06-02 09:43] VITALS: BP 120/58; PULSE 58; RESP 14; TEMP 36.2; O2SAT 97
--- NOTE | 2025-06-02 09:46 | SUR.PHASEI ---
0930 - LD nurse present during PACU
[2025-06-02] MEDS: LANOLIN OINT 7 GM 1 APPLIC TOP (11:55)
[2025-06-02 14:19] VITALS: BP 157/100
[2025-06-02] MEDS: KETOROLAC 30 MG/ML VIAL IV ×2 (15:09→20:53)
[2025-06-03] MEDS: KETOROLAC 30 MG/ML VIAL IV (03:23)
[2025-06-03] MEDS: ACETAMINOPHEN 325 MG TABLET 650 MG PO ×3 (03:23→15:04)
[2025-06-03 06:18] LABS: Add Manual Diff / Slide Review NO; Hematocrit 28.1 % (36-46); Hemoglobin 9.4 g/dL (12.0-16.0); Lymphocytes Absolute Auto 1700 /uL (1100-4500); Mean Corpuscular HGB Conc 33.5 % (30-36); Mean Corpuscular Hemoglobin 28.4 PG (26-34); Mean Corpuscular Volume 84.9 fL (80-100); Platelet Count 143 X10^3/uL (150-400)
[2025-06-03] MEDS: LABETALOL 100 MG TABLET 200 MG PO (08:34)
[2025-06-03] MEDS: IBUPROFEN 600 MG TABLET PO ×2 (08:45→15:05)
--- NOTE | 2025-06-03 13:19 | P.DS_ITS ---
Discharge Providers Provider Date of admission: 06/02/25 05:44 Discharge Date: 06/03/25 Primary care physician: Maylin Courtney Consults: 06/02/25 09:21 Consult to Stone Paver Routine Comment: Discharge provider: Brooke Liz DO Summary Hospital Course Date Patient Seen: 06/03/25 Time Patient Seen: 13:20 Diagnoses: Chronic hypertension, previous , desires permanent sterilization Hospital Course: Austin is a 35yo G2 now P2002 presented to L&D at 39wks for scheduled repeat c- section with permanent sterilization. complicated by Chronic hypertension currently on labetalol 200mg BID. Patient had an uncomplicated Repeat LTCS + bilateral salpingectomy with an uncomplicated course. desires dischage home on POD 1 baby healthy in room and has been cleared for discharge as well. Peripartum Data Infant Delivery Method: Section Procedures: RLTCS, Bilateral salpingectomy complications: none Discharge Diagnosis (1) Advanced maternal age (AMA) in : Status: Acute (2) Chronic hypertension affecting : Status: Acute (3) Uterine scar from previous delivery affecting : Status: Acute Status at Discharge Cognitive/behavioral status at discharge: oriented Functional status at discharge: independent ambulation Overall status at discharge: patient is progressing back to baseline Time Spent with Patient Time attestation: Total time spent providing and/or coordinating discharge services: Time spent: Less than 30 minutes Specific discharge activities: pelvic rest x 6 weeks, no lifting greater then 20 lbs Objective Labs 06/03/25 06:05 06/02/25 06:16 Labs: Laboratory Results - last 24 hr 06/03/25 06:05 WBC 11.5 H RBC 3.30 L Hgb 9.4 L Hct 28.1 L MCV 84.9 MCH 28.4 MCHC 33.5 RDW 15.1 H Plt Count 143 L Neut % (Auto) 76.9 H Lymph % (Auto) 14.5 L [place] % (Auto) 8.1 Eos % (Auto) 0.3 L Baso % (Auto) 0.2 Neut # (Auto) 8800 H Lymph # (Auto) 1700 [place] # (Auto) 900 Eos # (Auto) 0 Baso # (Auto) 0 Exam Vital Signs (past 8 hours): Oxygen Delivery Method Room Air BPs normotensive to mild range. vital signs stable Narrative Exam Narrative: Gen- NAD, AAO x3 lungs- unlabored breathing abdomen- fundus firm below umbilicus incision- skin intact, dry, no drainage - minimal lochia LE- 1+ edema bilaterally Discharge Plan Discharge Plan Patient Disposition: Home Provider Discharge Comment: discharge home, pelvic rest x 6 weeks Discharge orders & Medications Prescriptions: New ibuprofen 600 mg Tablet 600 mg PO Q6H 7 Days Qty: 28 0RF oxycodone 5 mg capsule 5 mg PO Q8H PRN (Reason: pain) Qty: 7 0RF Continued vit-ferrous sulfat-FA 27 mg iron- 0.8 mg tablet 1 tab PO DAILYCC labetalol 100 mg tablet 200 mg PO BID Follow up/Referrals: Brooke Liz DO [Physician, Gynecology] - 07/15/25 11:00 am Referral Note: Please follow up for your incision check on June 09 @11:30am. Please arrive by 11:15am! Additionally, please follow up for your 6 week appointment @11:00am! Please check in at 10:45am :) Juliet Zapata, MS [Registered Nurse, Nursing] - 06/10/25 11:00 am Referral Note: Please follow up w/ Vidhi for your [facility] on Tuesday[facility] Please arrive at 10:45am! Preferably with Saturnino ready to breastfeed. Cancel by June 09 if not needed at ! :) Diet/Activity/Treatments Diet: Regular Activity: pelvic rest x 6 weeks, no lifting >20 lbs Skin/Wound/Dressing Care Report to your healthcare provider any signs of infection, such as:: chills, fever, increased pain, unusual drainage and unusual redness Visit Report/Discharge Packet Instructions: DI for Hemorrhage, DI for , DI for Depression Stand Alone Forms: Discharge: Care, Patient Portal/API, Stroke Signs & Symptoms Discharge Data Primary Care Provider: Miscellaneous,Doctor
== END 2025-06-03 15:21 | disposition home or self-care (01) | DRG 784 ==
PROVIDERS: Obstetrics & Gynecology; Admitting Provider Student in an Organized Health Care Education/Training Program; Referring Provider Student in an Organized Health Care Education/Training Program; Visit Provider Student in an Organized Health Care Education/Training Program
PROC: 10D00Z1 Extraction of Products of Conception, Low, Open Approach (ICD-10-PCS; CPT 59514; principal; 2025-06-02 07:45)
DX: O34.211 Maternal care for low transverse scar from previous cesarean delivery (principal); O10.02 Pre-existing essential hypertension complicating childbirth; O24.420 Gestational diabetes mellitus in childbirth, diet controlled; Z3A.39 39 weeks gestation of pregnancy; Z37.0 Single live birth; Z30.2 Encounter for sterilization
CPT/HCPCS: 36415; 59050; 80053; 82962; 85025; 86850; 86900; 86901; J0131; J0690; J1100; J1171; J1885; J2274; J2405; J2765

== ENCOUNTER 2025-06-10 09:54 | Inpatient (IN) | payer BC, SELFPAY ==
[2025-06-10] VITALS (26 sets, daily range): BP systolic 129–224; BP diastolic 67–114; PULSE 54–100; RESP 15–18; TEMP 36.3–37.3; O2SAT 97–100; BMI 30.8
--- NOTE | 2025-06-10 10:11 | ED_ITS ---
HPI - General Adult General Chief complaint: Hypertension Stated complaint: headache, HBP pc ref Time Seen by Provider: 06/10/25 10:07 Source: patient Mode of arrival: Ambulatory History of Present Illness HPI narrative: Patient is 7 days. Status post at 39 weeks . Patient seen by her OBGYN doctor yesterday and is on labetalol 200 mg twice a day. Was being treated for high blood pressure during the last part of her . She awoke this morning with headache. Patient states she was being monitored for preeclampsia prior to delivery of baby. Patient denies any seizure activity Related Data Previous Rx's ?Medication ?Instructions ?Recorded furosemide 20 mg tablet (Lasix) 20 mg PO DAILY 3 days #3 tabs 06/09/25 ibuprofen 600 mg tablet 600 mg PO Q6H 7 days #28 tab s 06/09/25 labetalol 100 mg tablet 200 mg (2 x 100 mg) PO BID # 60 tabs 06/09/25 Allergies Allergy/AdvReac Type Severity Reaction Status Date / Time No Known Drug Allergies Allergy Verified 06/10/25 12:08 Review of Systems Review of Systems Narrative: GENERAL: Negative chills, fatigue, malaise, fever, sweats. HEENT: Negative sinus pain, ear pain, sore throat RESPIRATORY: Negative dyspnea, cough CARDIOVASCULAR: Negative chest pain, palpitations GASTROINTESTINAL: Negative vomiting, nausea, abdominal pain : Negative dysuria, frequency, hematuria MUSCULOSKELETAL: Negative muscle or bony pain SKIN: Negative rash, skin lesions NEUROLOGIC: Negative weakness, numbness, positive headache ROS Unobtainable: All systems reviewed & are unremarkable except as noted in HPI and below Patient History Medical History (Updated 06/10/25 @ 10:26 by Catalino Regalado MD) Chronic hypertension affecting Endometritis following delivery GDM (gestational diabetes mellitus) (~2019) Ovarian cyst (~2017) Surgical History S/P section (~01/30/20) Family History Father Diabetes mellitus History of heart disease Hypertension Stroke Mother Hypertension Hyperlipidemia History of renal disease Brother Hypertension Grandmother Stroke Hypertension Uncle Down syndrome Social History marital status: number of children: 1 household members: spouse and children lives independently: Yes caregiver/support person: Yes housing: house pets and animals: Yes (dog) education level: college occupational status: employed current occupational exposures/hazards: Yes special beau needs: No travel history: over 6 months ago seatbelt use: always water heater temp set < 120 deg: Yes working smoke detector in home: Yes fire extinguisher in home: Yes carbon monox detector in home: Yes firearms in home: No do you feel safe at home: Yes Smoking Status: Never smoker second hand exposure: No alcohol intake: former substance use type: does not use during the past year weight has: remained stable well-balanced diet: about half the time daily servings fruits/ve-4 caffeine: Yes (stopped AM cup coffee w/ ) Type(s) of exercise: walking duration: < 15 minutes/day Smoking Status: Never smoker Exam Narrative Exam Narrative: GENERAL: in no distress, not toxic not dyspneic HEAD: Normocephalic. EYES: Pupils equal round ENT: Mucous membranes moist. NECK: Trachea midline. CARDIOVASCULAR: Regular rate and rhythm RESPIRATORY: Clear to auscultation. Breath sounds equal bilaterally. No wheezes, rales, or rhonchi. GASTROINTESTINAL: Abdomen soft, non-tender EXTREMITIES: No gross deformities. BACK: No flank tenderness. NEURO: AOx4. Clear speech no facial droop. Hyperreflexic bilateral patellar reflexes. SKIN: Warm and dry PSYCH: Not anxious, is cooperative Initial Vital Signs Initial Vital Signs: Vital Signs Temperature 97.9 F 06/10/25 10:01 Pulse Rate 54 L 06/10/25 10:01 Respiratory Rate 18 06/10/25 10:01 Blood Pressure 224/114 H 06/10/25 10:01 Pulse Oximetry 98 06/10/25 10:01 Oxygen Delivery Method Room Air 06/10/25 10:01 Course Orders Ordered: ED Orders 06/10/25 10:10 Urinalysis and Microscopic Stat EKG-12 Lead Stat 06/10/25 10:18 CBC Auto Diff [Complete Blood Count AUTO DIFF] Stat CMP [Comprehensive Metabolic Panel] Stat Magnesium Stat Hydralazine HCl (Hydralazine 20 Mg/Ml Vial) 5 mg IV NOW PRN; Protocol PRN Reason: SBP>= 160 or DBP >=110 Magnesium Sulfate (Magnesium Sulfate) 20 gm in 500 mls @ 50 mls/hr IV CONT CICI Last Admin: 06/10/25 11:15 Dose: 50 mls/hr Documented By: MILENA Co-signed By: TAMIKO Discontinued Medications Acetaminophen (Acetaminophen 325 Mg Tablet) 975 mg PO NOW ONE Stop: 06/10/25 10:25 Last Admin: 06/10/25 10:42 Dose: 975 mg Documented By: LIBRA Hydralazine HCl (Hydralazine 20 Mg/Ml Vial) 20 mg IV NOW ONE Stop: 06/10/25 10:11 Last Admin: 06/10/25 10:51 Dose: 20 mg Documented By: MILENA Magnesium Sulfate (Magnesium Sulfate) 4 gm in 100 mls @ 300 mls/hr IV NOW ONE Stop: 06/10/25 10:28 Last Admin: 06/10/25 10:53 Dose: 300 mls/hr Documented By: MILENA Co-signed By: TAMIKO Magnesium Sulfate (Magnesium Sulfate) 4 gm in 100 mls @ 300 mls/hr IV NOW ONE Stop: 06/10/25 10:57 Nifedipine (Nifedipine 30 Mg Tab Er) 30 mg PO NOW ONE Stop: 06/10/25 11:01 Last Admin: 06/10/25 11:08 Dose: 30 mg Documented By: MILENA Vital Signs Vital signs: Vital Signs - 8 hr 06/10/25 10:01 06/10/25 10:19 06/10/25 10:20 Temperature 97.9 F Pulse Rate 54 L 62 Respiratory Rate 18 Blood Pressure 224/114 H 206/108 H Pulse Oximetry 98 99 Oxygen Delivery Method Room Air 06/10/25 10:20 06/10/25 10:30 06/10/25 10:30 Temperature Pulse Rate 59 L 59 L Respiratory Rate Blood Pressure 201/105 H Pulse Oximetry 99 98 Oxygen Delivery Method Medical Decision Making Lab Data 06/10/25 10:18 06/10/25 10:18 Labs: Lab Results 06/10/25 06/10/25 Range/Units 10:10 10:18 WBC 6.7 (4.5-11.0) X10^3/uL RBC 4.04 (4.0-5.2) X10^6/uL Hgb 11.6 L (12.0-16.0) g/dL Hct 34.7 L (36-46) % MCV 85.9 (80-100) fL MCH 28.8 (26-34) PG MCHC 33.5 (30-36) % RDW 15.4 H (11.6-14.8) % Plt Count 237 (150-400) X10^3/uL Neut % (Auto) 77.9 H (50-75) % Lymph % (Auto) 14.4 L (25-40) % [place] % (Auto) 5.9 (3-14) % Eos % (Auto) 1.1 L (2-4) % Baso % (Auto) 0.7 (0-2) % Neut # (Auto) 5300 (1754-3026) /uL Lymph # (Auto) 1000 L (0149-3177) /uL [place] # (Auto) 400 (0-900) /uL Eos # (Auto) 100 (0-450) /uL Baso # (Auto) 0 (0-100) /uL Sodium 140 (137-145) mmol/L Potassium 4.0 (3.4-5.1) mmol/L Chloride 108 H (98-107) mmol/L Carbon Dioxide 24 (22-32) mmol/L BUN 13 (7-17) mg/dL Creatinine 0.85 (0.52-1.04) mg/dL Estimated GFR > 60 (>60) mL/min BUN/Creatinine Ratio 15.3 (6-22) Glucose 74 (70-99) mg/dL Calcium 8.7 (8.4-10.2) mg/dL Magnesium 1.9 (1.6-2.3) mg/dL Total Bilirubin 0.3 (0.2-1.3) mg/dL AST 41 H (14-36) IU/L ALT 91 H (<35) IU/L Alkaline Phosphatase 115 (38-126) U/L Total Protein 7.1 (6.3-8.2) g/dL Albumin 4.0 (3.5-5.0) g/dL Globulin 3.1 (1.7-4.1) g/dL Albumin/Globulin Ratio 1.3 (1.0-2.8) Urine Color Yellow Urine Appearance Clear Urine pH 6.0 (4.5-8.0) Ur Specific [place] <=1.005 (1.000-1.035) Urine Protein Negative (Negative) Urine Glucose (UA) Negative (Negative) g/dL Urine Ketones Negative (NEGATIVE) Urine Occult Blood Trace-intact (Negative) Urine Nitrate Negative (Negative) Urine Bilirubin Negative (NEGATIVE) Urine Urobilinogen 0.2 (0.2) E.U./dL Ur Leukocyte Esterase Negative (NEGATIVE) Urine RBC 0-1/hpf (0-5/HPF) Urine WBC None seen (0-5/HPF) Ur Squamous Epith Cells 0-1 /hpf (0-5/HPF) Amorphous Sediment 1+ Urine Bacteria None seen (None) Ur Culture Indicated? Cult not indicated Vol Urine Centrifuged 10ml (spun) MDM Narrative Medical decision making narrative: Patient is 7 days. Status post at 39 weeks . Patient seen by her OBGYN doctor yesterday and is on labetalol 200 mg twice a day. Was being treated for high blood pressure during the last part of her . She awoke this morning with headache. Patient states she was being monitored for preeclampsia prior to delivery of baby. Patient denies any seizure activity MDM After history and exam, patient just took her labetalol this morning at 9:00 a.m.. ,CBC CMP satellite project site monitor OBGYN consult hydralazine magnesium infusion, magnesium levels seizure precautions Differential considered: Includes but not limited to preeclampsia hypertensive urgency Medical records reviewed: Office note from OBGYN yesterday. Lab Test results independently reviewed as above. Pertinent findings: WBC 6.7 hemoglobin 11.6 sodium 140 potassium 4.0 GFR greater than 60 calcium 8.7 magnesium 1.9 AST 41 ALT 91 urinalysis negative protein Independently reviewed EKG sinus bradycardia rate 57 otherwise normal EKG Imaging studies independently reviewed: None indicated at this time. Consultations: 10:12 a.m.. Spoke with patient's OBGYN provider, Dr. Almazan, would like hydralazine and magnesium started. She will see patient now in the ER. Re-evaluations: 10:30 a.m.. Updated patient and she and agree and understand need for admission Discussion: Appropriate for admission for preeclampsia. OBGYN in services has seen patient in the ER, Dr. Almazan Diagnosis: Preeclampsia Discharge Plan Departure Patient Disposition: Admitted as Observation Clinical Impression: Pre-eclampsia Qualifiers: Trimester: unspecified trimester Qualified Code(s): O14.90 - Unspecified pre- eclampsia, unspecified trimester Admit Date/Time: 06/10/25 10:34 Admit Provider: Melanie Smallwood
[2025-06-10 10:26] LABS: Add Manual Diff / Slide Review NO; Hematocrit 34.7 % (36-46); Hemoglobin 11.6 g/dL (12.0-16.0); Lymphocytes Absolute Auto 1000 /uL (1100-4500); Mean Corpuscular HGB Conc 33.5 % (30-36); Mean Corpuscular Hemoglobin 28.8 PG (26-34); Mean Corpuscular Volume 85.9 fL (80-100); Platelet Count 237 X10^3/uL (150-400)
--- NOTE | 2025-06-10 10:27 | EKG_ITS ---
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
[2025-06-10 10:40] LABS: Alanine Aminotransferase 91 IU/L (<35); Albumin 4.0 g/dL (3.5-5.0); Albumin Globulin Ratio 1.3 (1.0-2.8); Alkaline Phosphatase 115 U/L (38-126); Blood Urea Nitrogen 13 mg/dL (7-17); Calcium 8.7 mg/dL (8.4-10.2); Carbon Dioxide 24 mmol/L (22-32); Chloride 108 mmol/L (98-107); Estimated Glomerular Filt Rate > 60 mL/min (>60); Globulin 3.1 g/dL (1.7-4.1); Glucose 74 mg/dL (70-99); HEMOLYSIS < 15 (0-50); Magnesium 1.9 mg/dL (1.6-2.3); Potassium 4.0 mmol/L (3.4-5.1); Sodium 140 mmol/L (137-145); Total Protein 7.1 g/dL (6.3-8.2)
--- NOTE | 2025-06-10 10:40 | PM.OBHP.IH.1 ---
OB HPI Date/Time Date of admission: 06/10/25 Date Patient Seen: 06/10/25 Time Patient Seen: 10:40 History of Present Condition Chief complaint: CHTN, STEWARD SARAH Calculator Estimated Delivery Date Method Current WG Current Estimate 06/08/25 LMP (Certain) 40w 2d Other Estimates 06/05/25 Ultrasound #1 40w 5d : 2 Para: 2 Narrative: 35yo POD8 s/p RCS with bilateral salpingectomy presents to ED with c/o new onset STEWARD this AM with associated elevated home BP reading. course notable for CHTN managed with PO labetalol (up-titrated to 100mg BID at 34wga, continued throughout inpatient admission and at discharge) without prior s/sx of SI preE. Pt was seen in office yesterday (06/09) for routine postoperative incision check. New progressive BLE edema was noted at that time and patient was prescribed a brief course of lasix. Normotensive in office. Pt then awakened this AM with severe STEWARD described as a band with +photophobia. She took her BP at home and it was severely elevated (>200 SBP) and she immediately presented to ED for further evaluation. In triage BP 212/108 and ER contacted OB on-call for further management recommendations. On my interview patient is resting comfortably in bed, NAD. Endorses a brief episode of SOB yesterday with supine positioning but none at present, denies visual changes other than STEWARD-associated light sensitivity, denies RUQ pain. States incisional pain is minimal, lochia scant. exclusively, bonding well with . Endorses compliance with home PO labetalol, last taken this AM prior to presentation. care: good care Obstetrical complications: other (CHTN) Medical complications OB: other ( SI preE with severe features ) Preadmission Labs Last OB Lab Results: Blood Type B Positive 06/02/25, 06:16 Antibody Screen Negative 06/02/25, 06:16 Hct, (36-46) 34.7 % L Today, 10:18 Hgb, (12.0-16.0) 11.6 g/dL L Today, 10:18 Hep Bs Antigen, (NEGATIVE) Negative s/c 11/15/24, 10:21 Hepatitis C Antibody, (NEGATIVE) Negative s/c 11/15/24, 10:21 Rubella Antibody, (>15) 169.0 IU/mL 11/15/24, 10:21 VZV IgG Antibody, (Non Reactive) Reactive 11/15/24, 10:21 Glucose 1 Hr 50 gm, (76-139) 187 mg/dL H 02/19/25, 13:12 Hemoglobin A1c, (4.0-6.0) 4.9 % 11/15/24, 10:21 Group B Strep (PCR) Neg for grp b strep 05/09/25, 11:00 Prior (ies) Past Pregnancies Del. Date GA/Weeks Labor Lgth Wt Sex Route Outcome Anesthesia Place Delv Breastfeed Preg Comp Name 01/30/20 39.2 12 8 lb 3 oz Male live - full term epidural IH [facility]ed [facility] Medical History (Updated 06/10/25 @ 10:26 by Catalino Regalado MD) Chronic hypertension affecting Endometritis following delivery GDM (gestational diabetes mellitus) (~2019) Ovarian cyst (~2016) Surgical History S/P section (~01/30/20) Family History Father Diabetes mellitus History of heart disease Hypertension Stroke Mother Hypertension Hyperlipidemia History of renal disease Brother Hypertension Grandmother Stroke Hypertension Uncle Down syndrome Social History marital status: number of children: 1 household members: spouse and children lives independently: Yes caregiver/support person: Yes housing: house pets and animals: Yes (dog) education level: college occupational status: employed current occupational exposures/hazards: Yes special beau needs: No travel history: over 6 months ago seatbelt use: always water heater temp set < 120 deg: Yes working smoke detector in home: Yes fire extinguisher in home: Yes carbon monox detector in home: Yes firearms in home: No do you feel safe at home: Yes Smoking Status: Never smoker second hand exposure: No alcohol intake: former substance use type: does not use during the past year weight has: remained stable well-balanced diet: about half the time daily servings fruits/ve-4 caffeine: Yes (stopped AM cup coffee w/ ) Type(s) of exercise: walking duration: < 15 minutes/day Meds Home Medications and Allergies Home Medications ?Medication ?Instructions ?Recorded ?Confirmed ?Type furosemide 20 mg tablet (Lasix) 20 mg PO DAILY 3 days #3 tabs 06/09/25 06/10/25 Rx ibuprofen 600 mg tablet 600 mg PO Q6H 7 days #28 tabs 06/09/25 06/10/25 Rx labetalol 100 mg tablet 200 mg (2 x 100 mg) PO BID #60 tabs 06/09/25 06/10/25 Rx Allergies Allergy/AdvReac Type Severity Reaction Status Date / Time No Known Drug Allergies Allergy Verified 06/10/25 12:08 Review of Systems Review of Systems ROS: Yes All systems reviewed with the patient and are negative except as otherwise documented OB Exam Vital signs Blood Pressure: 202/108 Pulse Rate: 86 Respiratory Rate: 16 HENMT Head: normal to inspection and normocephalic Mouth: oral mucosae normal Eyes General: appearance normal, both eyes and all related structures Resp Effort & Inspection: normal respiratory effort and able to speak in complete sentences Auscultation: clear to auscultation bilaterally Cardio Rate: regular rate Rhythm: regular rhythm Extremities Lower extremity: Yes edema Laterality: bilateral (to level of knee) edema degree: 3+ GI Inspection: normal to inspection Palpation: Yes soft Other: pfannensteil incision healing well, c/d/i without erythema Objective Labs 06/10/25 10:18 06/10/25 10:18 Labs: Laboratory Results - last 24 hr 06/10/25 10:18 WBC 6.7 RBC 4.04 Hgb 11.6 L Hct 34.7 L MCV 85.9 MCH 28.8 MCHC 33.5 RDW 15.4 H Plt Count 237 Neut % (Auto) 77.9 H Lymph % (Auto) 14.4 L [place] % (Auto) 5.9 Eos % (Auto) 1.1 L Baso % (Auto) 0.7 Neut # (Auto) 5300 Lymph # (Auto) 1000 L [place] # (Auto) 400 Eos # (Auto) 100 Baso # (Auto) 0 Assessment and Plan Assessment and Plan Assessment and Plan narrative: 35yo POD8 s/p RCS with bilateral salpingectomy, readmission for super-imposed preE with severe features SIpreE with SF IV hydralazine x1 with immediate response --> BP 140s/90s stop PO labetalol start PO nifedipine 30mg XR, low threshold to titrate to BID pending clinical course 4g IV mag bolus + 2g/hr thereafter maintenance x24h q6h mag checks, q2h neuro checks / support PRN dispo: admit for inpatient monitoring and observation Time-Based Coding :: [TOTAL MINUTES] spent with patient and on the chart (including review of chart, obtaining history, exam, reviewing outside data, placing orders, documenting exam and treatment plan, and counseling patient) on [DATE].
[2025-06-10] MEDS: ACETAMINOPHEN 325 MG TABLET 975 MG PO (10:42)
--- NOTE | 2025-06-10 10:44 | PC.NURSE ---
Pt here for hypertension. 8 days . Taking labetolol and lasix. Took BP meds for the last month of her . Had C section. Symtoms today are severe headache.
[2025-06-10 10:51] LABS: Appearance Urine UA CLEAR; Bilirubin Urine UA NEGATIVE (NEGATIVE); Color Urine UA YELLOW; Glucose Urine UA NEGATIVE (Negative); Ketones Urine UA NEGATIVE (NEGATIVE); Leukocyte Esterase Urine UA NEGATIVE (NEGATIVE); Nitrite Urine UA NEGATIVE (Negative); Occult Blood Urine UA TRACE-INTACT (Negative); Protein Urine UA NEGATIVE (Negative); Specific Gravity Urine UA <=1.005 (1.000-1.035); Urobilinogen Urine UA 0.2 E.U./dL (0.2)
[2025-06-10] MEDS: hydrALAZINE 20 MG/ML VIAL IV (10:51)
[2025-06-10] MEDS: MAGNESIUM SULFATE 4 GM/100 ML PIGGYBACK IV (10:53)
[2025-06-10 10:59] LABS: pH Urine UA 6.0 (4.5-8.0)
[2025-06-10 11:05] LABS: Culture Indicated Urine Cult Not Indicated
[2025-06-10] MEDS: NIFEdipine 30 MG TAB ER PO ×2 (11:08→21:11)
[2025-06-10] MEDS: MAGNESIUM SULFATE 20 GM/500 ML IV.SOLN IV ×2 (11:15→21:15)
[2025-06-10] MEDS: BUTALB/APAP/CAFFEINE 50/325/40 TABLET 1 EACH PO (14:40)
[2025-06-10] MEDS: ACETAMINOPHEN 325 MG TABLET 650 MG PO ×2 (17:20→22:59)
[2025-06-10] MEDS: diphenhydrAMINE 50 MG/ML VIAL 25 MG IV (21:11)
[2025-06-10 21:32] LABS: Magnesium 5.6 mg/dL (1.6-2.3)
[2025-06-11] VITALS (16 sets, daily range): BP systolic 124–143; BP diastolic 67–96; PULSE 72–98; RESP 16–20; TEMP 36.6–37.3; O2SAT 95–100
[2025-06-11 05:25] LABS: Add Manual Diff / Slide Review NO; Hematocrit 36.4 % (36-46); Hemoglobin 12.3 g/dL (12.0-16.0); Lymphocytes Absolute Auto 1000 /uL (1100-4500); Mean Corpuscular HGB Conc 33.7 % (30-36); Mean Corpuscular Hemoglobin 28.6 PG (26-34); Mean Corpuscular Volume 85.0 fL (80-100); Platelet Count 268 X10^3/uL (150-400)
[2025-06-11] MEDS: ACETAMINOPHEN 325 MG TABLET 650 MG PO ×3 (05:25→20:57)
[2025-06-11 05:36] LABS: Alanine Aminotransferase 68 IU/L (<35); Albumin 3.8 g/dL (3.5-5.0); Albumin Globulin Ratio 1.3 (1.0-2.8); Alkaline Phosphatase 122 U/L (38-126); Blood Urea Nitrogen 10 mg/dL (7-17); Calcium 6.5 mg/dL (8.4-10.2); Carbon Dioxide 24 mmol/L (22-32); Chloride 104 mmol/L (98-107); Estimated Glomerular Filt Rate > 60 mL/min (>60); Globulin 3.0 g/dL (1.7-4.1); Glucose 95 mg/dL (70-99); HEMOLYSIS < 15 (0-50); Potassium 3.8 mmol/L (3.4-5.1); Sodium 135 mmol/L (137-145); Total Protein 6.8 g/dL (6.3-8.2)
[2025-06-11 05:54] LABS: Magnesium 6.6 mg/dL (1.6-2.3)
[2025-06-11] MEDS: MAGNESIUM SULFATE 20 GM/500 ML IV.SOLN IV (07:17)
--- NOTE | 2025-06-11 07:33 | PC.NURSE ---
Report given to FANNY Leon
[2025-06-11] MEDS: NIFEdipine 30 MG TAB ER PO ×2 (08:39→20:57)
[2025-06-11] MEDS: BUTALB/APAP/CAFFEINE 50/325/40 TABLET 1 EACH PO (08:50)
--- NOTE | 2025-06-11 18:47 | P.PNOB_ITS ---
Subjective - OB Subjective Patient comments: no complaints [place] baby status: doing well and nursing well feeding status: exclusively breast feeding Narrative: Patient doing well this am. Reports that her headache has finally resolved. Mag stopped 2 hours ago and overall feeling well. exclusively. reports urinating well and feels that her LE edema has improved. Date Patient Seen: 06/11/25 Time Patient Seen: 13:30 Exam Vital Signs (past 8 hours): - 06/11/25 11:00 06/11/25 12:00 06/11/25 13:00 Pulse Rate 84 88 86 Respiratory Rate 16 16 16 Blood Pressure 136/88 135/88 132/86 Pulse Oximetry 100 95 98 06/11/25 15:55 06/11/25 17:00 Pulse Rate 72 79 Respiratory Rate 18 16 Blood Pressure 143/91 H 141/96 H Pulse Oximetry 99 98 Oxygen Delivery Method Room Air Narrative Exam Narrative: Gen- AAO x 3, NAD, resting comfortably lungs- aerating well, able to speak effectively cardio- RRR abdomen- soft, nontender, fundus firm incision- skin intact, well healed, no drainage or area of separation LE- 1+ edema Objective Labs 06/11/25 05:01 06/11/25 05:01 Labs: Laboratory Results - last 24 hr 06/10/25 06/11/25 21:09 05:01 WBC 7.9 RBC 4.28 Hgb 12.3 Hct 36.4 MCV 85.0 MCH 28.6 MCHC 33.7 RDW 15.8 H Plt Count 268 Neut % (Auto) 80.1 H Lymph % (Auto) 12.5 L [place] % (Auto) 6.2 Eos % (Auto) 0.9 L Baso % (Auto) 0.3 Neut # (Auto) 6300 Lymph # (Auto) 1000 L [place] # (Auto) 500 Eos # (Auto) 100 Baso # (Auto) 0 Sodium 135 L Potassium 3.8 Chloride 104 Carbon Dioxide 24 BUN 10 Creatinine 0.78 Estimated GFR > 60 BUN/Creatinine Ratio 12.8 Glucose 95 Calcium 6.5 L Magnesium 5.6 H* 6.6 H* Total Bilirubin 0.4 AST 29 ALT 68 H Alkaline Phosphatase 122 Total Protein 6.8 Albumin 3.8 Globulin 3.0 Albumin/Globulin Ratio 1.3 Assessment & Plan Plan day: 9 Comments: 35yo POD8 s/p RCS with bilateral salpingectomy, readmission for super- imposed preE with severe features Superimposed Preeclampsia with severe features- HD 2 received IV hydralizine on admit Labetalol 100mg BID discontinued on admit now s/p 24 hour Magnesium for seizure prophylaxis Started on oral antihypertensive -- Nifedipine 30mg XL PO BID, BPs continue to be well controlled on this dose, will continue to monitor BPs overnight and adjust meds as needed likely discharge tomorrow am, will need f/u appt in 3 days for BP check in clinic-- scheduled Monday at 10:15am for nurse visit/BP check / support PRN dispo- anticipate discharge home tomorrow am, will need Rx for new antihypertensive regimen. Time-Based Coding :: [TOTAL MINUTES] spent with patient and on the chart (including review of chart, obtaining history, exam, reviewing outside data, placing orders, documenting exam and treatment plan, and counseling patient) on [DATE].
[2025-06-12] VITALS (11 sets, daily range): BP systolic 130–159; BP diastolic 80–106; PULSE 74–119; RESP 14–16; TEMP 36.2–37.1; O2SAT 97–98
--- NOTE | 2025-06-12 01:00 | PC.NURSE ---
1941: FANNY rec'd report from Carolyn Abad RN. 2100: RN flushed x2 IV sites (R ac & L arm).
[2025-06-12] MEDS: ACETAMINOPHEN 325 MG TABLET 650 MG PO (02:58)
--- NOTE | 2025-06-12 07:28 | PC.NURSE ---
RN gave bedside shift report to Sarita Collins RN at this time.
--- NOTE | 2025-06-12 07:58 | PC.NURSE ---
0715 report received from Mamie ESCOBEDO.
[2025-06-12] MEDS: NIFEdipine 30 MG TAB ER PO ×3 (09:13→20:15)
[2025-06-12] MEDS: LABETALOL 100 MG TABLET 200 MG PO ×2 (10:50→14:56)
--- NOTE | 2025-06-12 15:57 | PC.NURSE ---
Assumed patient care from Sarita RN at 1345. Pt upset with POC and external variables. 30m discussion with pt re necessary stable BPs for safe d/c. Pt reports issues with early childhood services coordinator for 5 y/o son, does not want formula given to baby. No ability for childcare should she need to stay another night. RN to contact Norah DAMICO and discuss POC. 1430 reported to RN that patient was having a hard time. RN at bedside discussing POC, options for early childhood services coordinator and external variables with patient and SO. 1445 Norah DAMICO at bedside to discuss POC. Would like to see lower than 150/100 BPs prior to d/c. Willing to check serial BPs hourly. 1500 BP taken and elevated. Pt to feed baby and relax prior to next BP check.
--- NOTE | 2025-06-12 16:30 | PC.NURSE ---
1608 texted Norah DAMICO BP reading for 1600. responded to obs next hour BP and adjust meds as needed per MD order. No further orders rcvd
--- NOTE | 2025-06-12 17:43 | PC.NURSE ---
[id number] Norah DAMICO notified of BP at 1700. Changed Nifedipine dosages for AM/PM. See new orders placed.
--- NOTE | 2025-06-12 19:07 | P.DS_ITS ---
History of Present Illness History of Present Illness Date Patient Seen: 06/12/25 Time Patient Seen: 11:00 Chief complaint: CHTN, STEWARD Discharge Providers Provider Date of admission: 06/10/25 10:34 Discharge Date: 06/12/25 Primary care physician: Doctor Renetta MD Discharge provider: Maylin Courtney DO Summary Hospital Course Discharge Diagnosis: pre-eclampsia with severe features Chronic hypertension Hospital Course: 35yo [id number] readmitted on day #8 due to headache with severe range blood pressures. She received 24hrs of magnesium for seizure prophylaxis and was started on nifedipine 30mg BID. By hospital day #3, her blood pressures were normal to mild range with 30mg nifedipine TID and labetalol 200mg TID. Thus she will be discharged home with close follow-up. Status at Discharge Cognitive/behavioral status at discharge: oriented Functional status at discharge: independent ambulation Overall status at discharge: patient is progressing back to baseline Time Spent with Patient Time spent: Greater than 30 minutes Exam Vital Signs (past 8 hours): - 06/12/25 12:30 06/12/25 15:05 06/12/25 17:00 Temperature 98.8 F Pulse Rate 119 H Respiratory Rate 14 Blood Pressure 139/92 H 159/106 H 149/82 H Pulse Oximetry 98 06/12/25 18:00 06/12/25 19:00 Temperature Pulse Rate Respiratory Rate Blood Pressure 141/88 H 137/86 Pulse Oximetry Oxygen Delivery Method Room Air Const General: cooperative, healthy appearing and No acute distress Resp Effort & Inspection: normal respiratory effort and able to speak in complete sentences GI Palpation: soft and No tender Skin General: no rashes or lesions noted Neuro Cognition: normal cognition Speech: speech normal Extrem General: no calf tenderness and edema (+1 bilaterally) Psych Mood: congruent mood Affect: normal affect Objective Labs 06/11/25 05:01 06/11/25 05:01 [facility] Medical History (Updated 06/12/25 @ 19:18 by Maylin Courtney DO) Chronic hypertension affecting Endometritis following delivery GDM (gestational diabetes mellitus) (~2019) Ovarian cyst (~2016) Surgical History S/P section (~01/30/20) Family History Father Diabetes mellitus History of heart disease Hypertension Stroke Mother Hypertension Hyperlipidemia History of renal disease Brother Hypertension Grandmother Stroke Hypertension Uncle Down syndrome Social History marital status: number of children: 1 household members: spouse and children lives independently: Yes caregiver/support person: Yes housing: house pets and animals: Yes (dog) education level: college occupational status: employed current occupational exposures/hazards: Yes special beau needs: No travel history: over 6 months ago seatbelt use: always water heater temp set < 120 deg: Yes working smoke detector in home: Yes fire extinguisher in home: Yes carbon monox detector in home: Yes firearms in home: No do you feel safe at home: Yes second hand exposure: No alcohol intake: former substance use type: does not use during the past year weight has: remained stable well-balanced diet: about half the time daily servings fruits/ve-4 caffeine: Yes (stopped AM cup coffee w/ ) Type(s) of exercise: walking duration: < 15 minutes/day Discharge Assessment & Plan Assessment and Plan Assessment: pre-eclampsia with severe features Chronic hypertension Plan of Treatment: Plan to discharge home with current antihypertensive regimen, with close interval follow-up in clinic in 3 days. Discharge Plan Discharge Plan Patient Disposition: Home Provider Discharge Comment: Take nifedipine 30mg three times daily, with labetalol 200mg three times daily. Continue to take your blood pressure at home 2-3 times daily. Please call the clinic or the after hours provider if your blood pressures are greater than 150/100. Discharge orders & Medications Prescriptions: New nifedipine 30 mg Tablet Extended Release 24hr 30 mg PO TID Qty: 60 0RF labetalol 100 mg Tablet 200 mg PO TID Qty: 60 0RF Continued ibuprofen 600 mg tablet 600 mg PO Q6H 7 Days Qty: 28 0RF Discontinued furosemide [Lasix] 20 mg tablet 20 mg PO DAILY 3 Days Qty: 3 0RF labetalol 100 mg tablet 200 mg PO BID Qty: 60 2RF Follow up/Referrals: Maylin Courtney DO [Physician, AUDIT ANALYST] Referral Note: Please walk-in to clinic on Saturday 06/16 for a blood pressure check. Diet/Activity/Treatments Diet: Diet as Tolerated Activity: As tolerated. Skin/Wound/Dressing Care Report to your healthcare provider any signs of infection, such as:: chills, fever, increased pain, unusual drainage and unusual redness Visit Report/Discharge Packet Instructions: DI for Pre-eclampsia Stand Alone Forms: Patient Portal/API, Stroke Signs & Symptoms Discharge Data Primary Care Provider: Miscellaneous,Doctor Quality [facility] Deep Vein Thrombosis/Pulmonary Embolism Present on Admission: Yes [facility] Charge Codes Discharge inpatient/observation: [id number]
--- NOTE | 2025-06-12 19:35 | PC.NURSE ---
Report given to Kellie ESCOBEDO
--- NOTE | 2025-06-12 20:01 | PC.NURSE ---
RN at bedside discussing plan for discharge with patient. Patient denies questions and concerns at this time.
--- NOTE | 2025-06-12 20:02 | PC.NURSE ---
06/12/[id number] called unit to discuss plan for patient discharge. Medication perscriptions sent to pharmacy of patient choice.
== END 2025-06-12 20:21 | disposition home or self-care (01) | DRG 776 ==
LOC: ED 10:26 → LABOR 10:37
PROVIDERS: Admitting Provider Obstetrics & Gynecology; Emergency Provider Emergency Medicine; Referring Provider Emergency Medicine; Visit Provider Obstetrics & Gynecology
DX: O14.15 Severe pre-eclampsia, complicating the puerperium (principal)
CPT/HCPCS: 36415; 80053; 81001; 83735; 85025; 93005; 99284; J0360; J1200; J3475